=== PATIENT | female | born 1940 | race Caucasian/White ===

== ENCOUNTER → 2019-05-14 08:47 | Outpatient (BNVA) | payer OTHER, SELFPAY | PROVIDERS: Family Provider Internal Medicine; PCP Internal Medicine; Visit Provider Otolaryngology | DX: E04.1 Nontoxic single thyroid nodule (principal); J34.2 Deviated nasal septum; J34.3 Hypertrophy of nasal turbinates | CPT/HCPCS: 99214 ==

== ENCOUNTER 2019-05-21 10:25 | Day surgery (SDC) | payer OTHER, SELFPAY ==
[2019-05-18 15:48] VITALS: BMI 47.2
[2019-05-21] VITALS (10 sets, daily range): BP systolic 127–166; BP diastolic 56–80; PULSE 93–100; RESP 16–22; TEMP 36.8–37.3; O2SAT 94–98
[2019-05-21 11:12] LABS: Glucose Point of Care 121 mg/dL (70-110)
--- NOTE | 2019-05-21 11:24 | ANES.PREANES ---
Pre-Anesthetic Assessment Pre-Anesthetic Assessment: Height/Weight: Height 1.63 m Weight 124.738 kg Preop Diagnosis: Thyroid mass Proposed Procedure: Operation Date: 05/21/19 12:15 Proposed Procedures p Hemithyroidectomy(Right) - Semaj Monsivais MD Familial anesthetic complications: PONV, hard to wake up Was Beta Inez taken within 24 hours: Yes Last intake: yesterday at 9 pm Social: Social History: No alcohol and No tobacco Exam: Pre-Anes Outpt Exam: alert, oriented x 3, clear to auscultation bilaterally and regular rate & rhythm Airway: Cervical ROM: WNL MP: 2 Dentition: False Pulmonary: Pulmonary: Sleep apnea and SOB Comments: Patient has CHF, wears O2 with activity (2 L NC) CV/HEM: CV/HEM: CHF and HTN Comments: stent placed approximately, on plavix and asa,last took 9 days ago : : Chronic renal failure Comments: stage III - not on dialysis, kidney functioning is declining and is now getting blood every week Hepatic: Hepatic: None reported Metabolic: Metabolic: DM, Morbid obesity and Thyroid (mass) Musc/skel: Musc/skel: Fibromyalgia Neuropsych: Neuropsych: Neuropathy Anesthetic Plan: ASA status: IV Anesthesia: General Risk of > 500 ml blood loss (7ml/kg in children): No PFSH Anesthesia PFSH: Social History Smoking and tobacco status: never smoked Alcohol intake: current Alcohol use comment: occasional Substance/Drug Use: never Data Anesthesia Other Labs: Laboratory Results - last 48 hr 05/21/19 11:08 POC Glucose 121 Cardiac Studies: No Data to Display
[2019-05-21] MEDS: sodium chloride 0.9% 1,000 ML 30 ML IV (12:00)
--- NOTE | 2019-05-21 13:45 | PM.HPUD ---
H&P update H&P Update: DATE OF SURGERY/PROCEDURE: 05/21/19 DATE H&P PERFORMED: 05/14/19 H&P UPDATE INFORMATION: H&P completed within last 30 days and No changes to prior documentation PLANNED PROCEDURE: Operation Date: 05/21/19 12:15 Proposed Procedures p Hemithyroidectomy(Right) - Semaj Monsivais MD Full H&P Perinent History: Family History: Family History (Updated 05/11/19 @ 10:55 by Lisseth Rendon LPN) Mother CAD (coronary artery disease) Other Diabetes Myocardial infarction Social History: Social History Smoking and tobacco status: never smoked Alcohol intake: current Alcohol use comment: occasional Substance/Drug Use: never
--- NOTE | 2019-05-21 13:46 | PM.OP ---
Operative Report Date of procedure: 05/21/19 Pre-op Diagnosis: Thyroid mass Post-op diagnosis: same Post-op Findings: Enlarged right lobe of thyroid Procedure Done: Right thyroid lobectomy Specimens removed/disposition: Right thyroid lobectomy Pathology: Right thyroid lobectomy Surgeon: Semaj Monsivais Anesthesia: General Estimated blood loss (mL): 5 Complications: None Condition: stable Disposition: PACU Brief History: Mrs. Martinez is a 78-year-old female with a right thyroid mass that was highly suspicious on ultrasound. I discussed goals risks and alternatives with her she like to proceed with lobectomy. Informed consent was obtained. Procedure: The patient was prepped draped and injected. A 1.5 cm incision was made in a relaxed skin tension line at the level of the isthmus. Dissection was carried down through the anterior layer of deep cervical fascia. The right lobe of the thyroid was identified the strap musculature was retracted laterally the superior thyroid artery inferior thyroid artery and middle thyroid vein were ligated with harmonic scalpel. The recurrent laryngeal nerve was identified and the gland was reflected into the wound. The isthmus was ligated. The specimen was sent for permanent section analysis. Hemostasis was obtained. Davion was placed in the wound bed. No complications occurred. The incision was closed in layer interrupted fashion with 4-0 Vicryl and five 5-0 Vicryl. Patient was taken to the recovery room during the recovery time postoperative care instructions and counseling including detailed written and verbal instruction given to the patient and the patient's granddaughter. Once both parties verbalized understanding of all instructions and once the patient met discharge criteria she was discharged in satisfactory and stable condition.
[2019-05-21] MEDS: neomycin-poly-bacitracin oint 28 gm 1 APPLIC TOPICAL (14:24)
[2019-05-21 15:09] LABS: Anion Gap 15.7 (5-19); Blood Urea Nitrogen 36 mg/dL (8-23); Calcium 9.5 mg/dL (8.5-10.5); Carbon Dioxide 30 mmol/L (22-29); Chloride 100 mmol/L (98-107); Glucose 177 mg/dL (74-106); Osmolality Calculated 294 mOsm/kg (285-295); Potassium 4.7 mmol/L (3.5-5.1); Sodium 141 mmol/L (136-145)
[2019-05-21] MEDS: fentaNYL 50 mcg/mL INJ 2mL IVP (17:00)
--- NOTE | 2019-05-21 17:35 | SUR.PHASEI ---
1720 PT TO OPS AWAKE ALERT TALKATIVE WITH FAMILY IN ROOM ,SATS 98% ON3LNC NO DISTRESS NECK DRESSING D/I PT TAKING SIPS OF SODA, GLUCOSE CHECK DONE AT BEDSIDE IN OPS
[2019-05-21 17:38] LABS: Glucose Point of Care 179 mg/dL (70-110)
== END 2019-05-21 18:07 | disposition home or self-care (01) ==
PROVIDERS: Anesthesiology; Family Provider Internal Medicine; PCP Internal Medicine; Visit Provider Otolaryngology
PROC: (CPT 60210; principal; 2019-05-21 12:15)
DX: E04.1 Nontoxic single thyroid nodule (principal); Z82.49 Family history of ischemic heart disease and other diseases of the circulatory system; G47.30 Sleep apnea, unspecified; Z99.81 Dependence on supplemental oxygen; E11.22 Type 2 diabetes mellitus with diabetic chronic kidney disease; I13.0 Hypertensive heart and chronic kidney disease with heart failure and stage 1 through stage 4 chronic kidney disease, or unspecified chronic kidney disease; N18.3 Chronic kidney disease, stage 3 (moderate); E66.01 Morbid (severe) obesity due to excess calories; Z68.42 Body mass index [BMI] 45.0-49.9, adult; M79.7 Fibromyalgia; E11.40 Type 2 diabetes mellitus with diabetic neuropathy, unspecified
CPT/HCPCS: 60210; 12345; 36415; 36416; 80048; 82962; 88307; 96365; J2001; J2405; J2704; J2710; J3010; J3490; J7030

== ENCOUNTER → 2019-05-22 10:27 | Outpatient (BNVA) | payer OTHER, SELFPAY | PROVIDERS: Family Provider Internal Medicine; PCP Internal Medicine; Visit Provider Otolaryngology | DX: J34.3 Hypertrophy of nasal turbinates (principal); J34.2 Deviated nasal septum; E07.9 Disorder of thyroid, unspecified; R09.82 Postnasal drip | CPT/HCPCS: 99024; 99214 ==

== ENCOUNTER → 2019-05-24 13:34 | Outpatient (BNVA) | payer OTHER, SELFPAY | PROVIDERS: Family Provider Internal Medicine; PCP Internal Medicine; Visit Provider Otolaryngology | DX: E04.1 Nontoxic single thyroid nodule (principal); J01.90 Acute sinusitis, unspecified; R09.82 Postnasal drip; E07.9 Disorder of thyroid, unspecified; J34.3 Hypertrophy of nasal turbinates; J34.2 Deviated nasal septum; Z88.3 Allergy status to other anti-infective agents | CPT/HCPCS: 99024; 99214 ==

== ENCOUNTER → 2019-06-11 09:06 | Outpatient (BNVA) | payer OTHER, SELFPAY | PROVIDERS: Family Provider Internal Medicine; PCP Internal Medicine; Visit Provider Otolaryngology | DX: J01.90 Acute sinusitis, unspecified (principal); R09.82 Postnasal drip; J34.3 Hypertrophy of nasal turbinates; J34.2 Deviated nasal septum; Z88.3 Allergy status to other anti-infective agents | CPT/HCPCS: 99213; 99214 ==

== ENCOUNTER 2019-08-20 10:42 | Emergency (ER) | payer OTHER, SELFPAY ==
[2019-08-20 10:48] VITALS: BMI 46.7
[2019-08-20 10:50] VITALS: BP 148/63; PULSE 67; RESP 20; TEMP 36.6; O2SAT 96
--- NOTE | 2019-08-20 10:53 | ED_ITS ---
HPI - Fall General: Chief Complaint: Fall Stated Complaint: FALL NIGHT BEFORE Time Seen by Provider: 08/20/19 10:49 History of Present Illness: HPI Narrative: Patient is a 78-year-old female comes to the ED after having a fall. Fall occurred last night. She is complaining of having left knee pain, left-sided upper back pain and tailbone pain. She currently rates the pain at about a 4 to a 5 out of 10. She takes Tylenol to help with pain and states that she does not want any pain meds while here in the ED. She denies any loss of consciousness, headache, scalp tenderness or neurological symptoms after fall. Associated symptoms-after fall: Denies abdominal pain, chest pain, headache(s), hematuria or neck pain Review of Systems Const: Denies: fever, chills or fatigue Eyes: Denies: change in vision or eye discomfort ENMT: Denies: throat pain, painful swallowing, nasal discharge or nasal congestion Card: Denies: chest pain, palpitations, edema, swelling of feet/ankles, shortness of breath on exertion or shortness of breath when lying down Resp: Denies: shortness of breath, productive cough or non-productive cough GI: Denies: abdominal pain, nausea, vomiting, diarrhea, constipation or blood in stool : Denies: flank pain, painful urination or blood in urine Musc: Reports: back pain (tailbone and upper back left side) and extremity pain (left knee); Denies: neck pain or extremity swelling Skin/Breast: Denies: rash or new lesion Neuro: Denies: headache, numbness in extremities or weakness in extremities PFS ED PFSH: Medical History Acute sinusitis Allergy to Betadine Family History Mother CAD (coronary artery disease) Other Diabetes Myocardial infarction Social History Smoking and tobacco status: never smoked Alcohol intake: current Physical Exam Const: COMMON NORMALS: oriented x3 HENMT: COMMON NORMALS: normocephalic HEAD & SCALP: normocephalic MOUTH: oral and palatal mucosa normal THROAT: posterior oropharynx normal and uvula midline Neck/C-Spine: COMMON NORMALS: supple GENERAL: Yes normal visual inspection Resp: COMMON NORMALS: normal respiratory effort, no retractions, no use of accessory muscles and clear to auscultation bilaterally AUSCULTATION: clear to auscultation bilaterally Cardio: COMMON NORMALS: regular rate, regular rhythm, S1 normal heart sound, S2 normal heart sound, no gallops, no clicks, no murmurs and peripheral pulses 2+ throughout RATE: regular rate RHYTHM: regular rhythm HEART SOUNDS: S1 normal and S2 normal PERIPHERAL PULSES: pulses 2+ throughout GI: COMMON NORMALS: normal to inspection, nondistended, normoactive bowel sounds, soft to palpation, non-tender and no masses PALPATION: Yes soft : COMMON NORMALS: Yes no CVA tenderness BLADDER/KIDNEY EXAM: Yes no CVA tenderness Back/Pelvis: COMMON NORMALS: no CVA tenderness THORACIC SPINE/UPPER BACK: Yes paraspinal muscle tenderness and Yes other soft tissue findings Other thoracic soft tissue findings laterality: left Left other thoracic soft tissue findings details: ecchymosis and tenderness COCCYX: tenderness Extremity: LEFT LOWER EXTREMITY: Yes knee joint Left knee: Yes inspection (normal), Yes palpation (mild tenderness on medial and lateral side of knee), Yes ROM (limited due to pain) and Yes neurovascular exam (intact) Neuro: COMMON NORMALS: oriented x3, CN's II-XII intact bilaterally, moves all extremities, no focal motor deficits and no sensory deficits noted COORDINATION/BALANCE: [id number]-os-mozg test normal MOTOR EXAM: strength 5/5 throughout COORDINATION: [id number]-ic-egpd test normal Skin: COMMON NORMALS: no rashes or lesions noted GENERAL SKIN EXAM: no rashes or lesions noted and dry skin Course Vital Signs: Vital signs: Vital Signs Temperature 97.8 F 08/20/19 10:50 Pulse Rate 71 08/20/19 12:31 Respiratory Rate 16 08/20/19 12:31 Blood Pressure 112/38 08/20/19 12:31 Pulse Oximetry 93 08/20/19 12:31 MDM - Fall MDM Narrative: Medical decision making narrative: Patient is a 78-year-old female who comes to the ED with left knee, upper back and tailbone pain. Physical exam showed a contusion with some bruising on the left upper back region. There is also soft tissue tenderness in the left upper back near the contusion. Lateral and medial tenderness over the knee. Tailbone tenderness. X-ray of sacrum and coccyx showed no acute fractures. X-ray of the knee showed osteoarthritis but no acute fractures. Patient was discharged and told to follow-up with PCP in 7 days for reevaluation. Apply ice and take Tylenol for pain. Patient understood and agreed with plan. Imaging Data^: Xray Ortho: Attestation: I personally reviewed and interpreted this imaging study as follows: Radiologist's impression: [address] [place] [address] XRay Report Signed Patient: Jing Martinez Unit #: [id number] : 1940 Age/Sex: 78 / F ADM Date: 08/20/19 Loc: ER Room/Bed: Attending Dr: Ordering Provider/Ordering MD: Juajno Comer Date of Service: 08/20/19 Procedure(s): XR sacrum coccyx min 2V 44007 Accession Number(s): [id number] Report Number: [id number] WS: [id number] SACRUM AND COCCYX TECHNIQUE: AP angled and lateral views. HISTORY: fall with pain in tailbone COMPARISON: None available. Bones are osteopenic. Mild narrowing of the SI joints. Moderate narrowing of the L5-S1 disc level. No fracture or displacement identified. XR/XR sacrum coccyx min 2V 51201 IMPRESSION: No sacral or coccygeal fracture identified radiographically. Dictated By: Keyla Emerson DO Signed By: Keyla Emerson DO Signed Date/Time: 08/20/19 1153 DD/ 1152 Other Xray: Attestation: I personally reviewed and interpreted this imaging study as follows: Radiologist's impression: [address] [place] [address] XRay Report Signed Patient: Jing Martinez Unit #: [id number] : 1940 Age/Sex: 78 / F ADM Date: 08/20/19 Loc: ER Room/Bed: Attending Dr: Ordering Provider/Ordering MD: Juanjo Comer Date of Service: 08/20/19 Procedure(s): XR knee LT 3V* 81334 Accession Number(s): [id number] Report Number: [id number] WS: [id number] LEFT KNEE: 3 VIEW(S) TECHNIQUE: AP, oblique and lateral. HISTORY: fall with left knee pain COMPARISON: None available. Osteopenia. Moderate to severe degenerative changes involving all 3 comp artments. No fracture is identified. No joint effusion. Vascular calcifications. XR/XR knee LT 3V* [id number] IMPRESSION: Tricompartment moderate osteoarthritis. No definite fractures are identified. Dictated By: Keyla Emerson DO Signed By: Keyla Emerson DO Signed Date/Time: 08/20/19 115 DD/ 1150 Discharge Plan Discharge Patient Disposition: Home, Self-Care Clinical Impression: Contusion Qualifiers: Encounter type: initial encounter Contusion area: shoulder Laterality: left Qualified Code(s): S40.012A - Contusion of left shoulder, initial encounter Osteoarthritis Qualifiers: Osteoarthritis location: knee Osteoarthritis type: primary Laterality: left Qualified Code(s): M17.12 - Unilateral primary osteoarthritis, left knee Condition: Stable Prescriptions: No Action clopidogrel 75 mg tablet 75 mg PO QDAY RF: 0 Novolin N NPH U-100 Insulin 100 unit/mL suspension 20 unit SUBCUT .sliding scale RF: 0 atorvastatin 80 mg tablet 80 mg PO .at bedtime RF: 0 metoprolol succinate 50 mg tablet extended release 24 hr 25 mg PO BID RF: 0 losartan 50 mg tablet 75 mg PO QDAY RF: 0 aspirin [Adult Aspirin Regimen] 81 mg tablet,delayed release (DR/EC) 81 mg PO QDAY RF: 0 torsemide 20 mg tablet 20 mg PO .4 daily RF: 0 isosorbide mononitrate 30 mg Tablet Extended Release 24 Hr 30 mg PO DAILY RF: 0 gabapentin 300 mg Capsule 300 mg PO BID RF: 0 diphenhydramine HCl [Benadryl] 25 mg Capsule 25 mg PO Q6H PRN (Reason: Itching) RF: 0 Discharge Orders: Discharge Order (Routine); Ordered 08/20/19 Ordered By: Juanjo Comer Referrals: Cj Croft [Primary Care Provider] - Discharge Diet: Regular Discharge Activity: Increase activity as tolerated Patient Instructions: Osteoarthritis (ED), Contusion in Adults (ED) Activity Restrictions/Additional Instructions: Follow-up with your PCP in 7 days for reevaluation. Take Tylenol for pain relief. Apply ice or cold pack on sore areas to help with symptoms. Continue taking all previously prescribed home medications. Discharge Date/Time: 08/20/19 12:33 Coding Level of Care Code ED Fire Protection Engineering Technician for Luly Fwneela Exam Comprehensive
--- NOTE | 2019-08-20 11:09 | XR_ITS ---
WS: [id number] LEFT KNEE: 3 VIEW(S) TECHNIQUE: AP, oblique and lateral. HISTORY: fall with left knee pain COMPARISON: None available. Osteopenia. Moderate to severe degenerative changes involving all 3 compartments. No fracture is iden tified. No joint effusion. Vascular calcifications. XR/XR knee LT 3V* [id number] IMPRESSION: Tricompartment moderate osteoarthritis. No definite fractures are identified.
--- NOTE | 2019-08-20 11:09 | XR_ITS ---
WS: [id number] SACRUM AND COCCYX TECHNIQUE: AP angled and lateral views. HISTORY: fall with pain in tailbone COMPARISON: None available. Bones are osteopenic. Mild narrowing of the SI joints. Moderate narrowing of the L5-S1 disc level. No fracture or displacement identified. XR/XR sacrum coccyx min 2V 48011 IMPRESSION: No sacral or coccygeal fracture identified radiographically.
[2019-08-20 11:42] VITALS: BP 112/38; PULSE 71; RESP 16; O2SAT 93
[2019-08-20 12:31] VITALS: BP 112/38; PULSE 71; RESP 16; O2SAT 93
== END 2019-08-20 12:33 | disposition home or self-care (01) ==
PROVIDERS: Emergency Provider Physician Assistant; Family Provider Internal Medicine; PCP Internal Medicine
DX: M17.12 Unilateral primary osteoarthritis, left knee (principal); S40.012A Contusion of left shoulder, initial encounter; Z79.02 Long term (current) use of antithrombotics/antiplatelets; Z79.4 Long term (current) use of insulin; Z79.82 Long term (current) use of aspirin; W19.XXXA Unspecified fall, initial encounter
CPT/HCPCS: 12345; 72220; 73562; 99282

== ENCOUNTER 2019-10-30 06:03 | Inpatient (IN) | payer OTHER, MEDICARE, SELFPAY ==
[2019-10-30] VITALS (17 sets, daily range): BP systolic 126–192; BP diastolic 50–103; PULSE 72–166; RESP 16–22; TEMP 36.4–37.2; O2SAT 91–100; BMI 45.9
--- NOTE | 2019-10-30 06:21 | ECG_ITS ---
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 Measurements Intervals Herminie Rate: 83 P: 61 MN: 199 QRS: -23 QRSD: 80 T: 70 QT: 364 QTc: 428 Interpretive Statements SINUS RHYTHM LOW QRS VOLTAGE IN PRECORDIAL LEADS [QRS DEFLECTION < 1.0 mV IN CHEST LEADS] ANTEROSEPTAL MYOCARDIAL INFARCTION , OF INDETERMINATE AGE [40+ ms Q WAVE IN V1-V4] Compared to ECG 08/17/2018 13:31:53 First degree AV block no longer present Left-axis deviation no longer present Myocardial infarct finding still present Electronically Signed On 10-30-2019 16:54:49 CDT by Rohan Pagan M.D. [id number]
--- NOTE | 2019-10-30 06:21 | XR_ITS ---
WS: [id number] PORTABLE CHEST HISTORY: chest pain COMPARISON: 08/17/2018 Moderate elevation of the RIGHT hemidiaphragm. Normal vasculature. No pneumonia. No pleural effusion or pneumothorax. Cardiac size: Mildly enlarged cardiac silhouette. Mediastinum/Aorta: Mild atherosclerosis aorta. 4 anchors are present in the RIGHT humeral head. XR/XR chest 1V portable [id number] IMPRESSION: Stable elevation RIGHT hemidiaphragm with mild cardiomegaly.
[2019-10-30] MEDS: ondansetron 2 mg/ML SDV 2 mL 4 MG IVP (07:08)
[2019-10-30] MEDS: morphine 4 mg/mL SDV 1 mL 2 MG IVP (07:09)
--- NOTE | 2019-10-30 07:40 | ED_ITS ---
HPI - Chest Pain General: Chief Complaint: Chest Pain Stated Complaint: CP Time Seen by Provider: 10/30/19 06:21 History of Present Illness: HPI narrative: 79-year-old female presents via area back with complaint of chest pain. She has right-sided chest pain i nitially woke her up this morning at 4 AM. She called EMS and her daughter who is a DIVISIONAL HUMAN RESOURCES DIRECTOR she has oxygen at home which she will wear it initially they put her on oxygen when EMS got there they gave her aspirin and one single sublingual nitro chest pain resolved but she still has right arm and leg pain she denies any focal neurologic deficit no difficulty speech swallowing or vision. When I seen her she was having 0 chest pain. She was a little short of breath and diaphoretic when it first started at home as well as nauseous and dizzy. That has all resolved as well. MD complaint: chest pain Pertinent past history: coronary artery disease and prior [place] Onset (ago): hour(s) Timing of current episode: episodic Prior episodes: Yes Onset: during rest Pain location: substernal and right chest Pain radiation: right arm and other (Right leg) Severity: moderate Quality: heaviness Relieving factors: other (Sublingual nitro and aspirin) Exacerbating factors: nothing Associated symptoms: Reports dyspnea, leg edema and nausea; Deny fever(s) Treatment prior to arrival: aspirin and nitroglycerin Review of Systems Const: Denies: fever(s), chills, body aches, change in appetite, fatigue or malaise ENMT: Denies: throat pain, ear or mastoid pain, nasal discharge or nasal congestion Card: Reports: chest pain, edema and dyspnea on exertion; Denies: orthopnea Resp: Reports: dyspnea; Denies: productive cough or non-productive cough GI: Reports: nausea : Denies: flank pain, difficulty voiding, dysuria, urinary frequency or urinary urgency Skin/Breast: Denies: rash or pruritus PFSH ED PFSH: Medical History (Updated 10/31/19 @ 06:08 by Stephen Jane DO) Allergy to Betadine Benign essential HTN CAD (coronary artery disease) Carotid stenosis Chronic diastolic congestive heart failure Chronic kidney disease DM2 (diabetes mellitus, type 2) Goiter Hyperlipidemia Hypertrophy of inferior nasal turbinate Nasal septal deformity Obesity Postherpetic polyneuropathy Postnasal drip Surgical History H/O partial thyroidectomy H/O: hysterectomy History of back surgery Hx of cholecystectomy Status post cardiac catheterization Family History Mother CAD (coronary artery disease) Other Diabetes Myocardial infarction Social History (Updated 10/30/19 @ 11:23 by Cheyanne Osman DO) Smoking and tobacco status: never smoked Alcohol intake: former Substance/Drug Use: never Physical Exam Const: COMMON NORMALS: no acute distress GENERAL APPEARANCE: cooperative and comfortable ORIENTATION/CONSCIOUSNESS: Yes awake, Yes oriented to person, Yes oriented to place and Yes oriented to time HENMT: COMMON NORMALS: normocephalic, atraumatic, hearing grossly normal bilaterally, external ears normal, EAC's normal, TM's normal bilaterally, Normal nasal mucous membranes and turbinates present, moist oral mucous membranes and oropharynx normal HEAD & SCALP: normocephalic and atraumatic NOSE: Normal nasal mucous membranes and turbinates present EXTERNAL EAR: Yes external ears normal EXTERNAL AUDITORY CANAL: EAC's normal TYMPANIC MEMBRANE: TM's normal bilaterally Eye: COMMON NORMALS: Equal, round and reactive pupils present, EOMs intact bilaterally, conjunctivae normal and no scleral icterus CONJUNCTIVA: Yes conjunctivae normal PUPIL: Yes Equal, round and reactive pupils present Neck/C-Spine: COMMON NORMALS: full ROM, no lymphadenopathy, supple and no JVD Lymph: LYMPHATIC: no lymphadenopathy noted and no lymphedema noted Resp: COMMON NORMALS: normal respiratory effort, No retractions, No use of accessory muscles and clear to auscultation bilaterally AUSCULTATION: clear to auscultation bilaterally Cardio: COMMON NORMALS: no JVD, regular rate, regular rhythm and No murmurs present (Cardio) RATE: regular rate RHYTHM: regular rhythm GI: COMMON NORMALS: Soft to palpation and No hepatosplenomegaly present AUSCULTATION: Yes normoactive bowel sounds PALPATION: Yes Soft to palpation, No Tenderness to palpation present (GI), No Guarding due to palpation present (GI) and Yes No hepatosplenomegaly present Extremity: COMMON NORMALS: normal to inspection, capillary refill normal, no clubbing, cyanosis or edema, no calf tenderness and no pedal edema Neuro: SENSORIUM/ORIENTATION: Yes oriented to person, Yes oriented to place and Yes oriented to time Skin: COMMON NORMALS: no rashes or lesions noted GENERAL SKIN EXAM: no rashes or lesions noted Course Vital Signs: Vital signs: Vital Signs Temperature 98.1 F 10/31/19 04:00 Pulse Rate 79 10/31/19 04:00 Respiratory Rate 19 H 10/31/19 04:00 Blood Pressure 167/65 10/31/19 04:00 Pulse Oximetry 99 10/31/19 04:00 MDM - Chest Pain MDM Narrative: Medical decision making narrative: Patient has a history of coronary disease last year she had a normal sestamibi stress test shortly after that went on to have her LAD stented. I am concerned about the fact that the patient had onset of chest pain while at rest and relieved completely by single nitro. She is not had any further symptoms Given her heart score she needs to be ruled out as an inpatient, she may need cardiology consultation given her complicated history. Discussed Dr. Osman orders have been written. Lab Data: Labs: Lab Results 10/30/19 10/30/19 10/30/19 Range/Units 09:00 09:00 09:00 WBC 10.0 (4.0-10.0) 10^3/ uL RBC 3.65 L (4.1-5.3) 10^6/u L Hgb 10.7 L (11.5-15.3) g/dL Hct 34.7 L (37.0-47.0) % MCV 95.1 (81-99) fL MCH 29.3 (28.0-34.0) pg MCHC 30.8 (30.0-36.0) g/dL RDW 13.2 (12.1-15.1) % Plt Count 284 (130-400) 10^3/c mm MPV 9.5 (7.4-10.4) fL Neut % (Auto) 77.6 % Lymph % (Auto) 14.5 % Perkins % (Auto) 5.8 % Eos % (Auto) 1.3 % Baso % (Auto) 0.4 % Neut # (Auto) 7.8 H (1.8-7.7) 10^3/u L Lymph # (Auto) 1.5 (0.8-4.8) 10^3/u L Perkins # (Auto) 0.6 (0.2-0.9) 10^3/u L Eos # (Auto) 0.1 (0.0-0.8) 10^3/u L Baso # (Auto) 0.0 (0.0-0.1) 10^3/u L Nucleated RBC % (a uto) 0 % Nucleated RBCs # 0.0 /100WBC D-Dimer (0-0.59) ug/mIFE U Sodium 136 (136-145) mmol/L Potassium 5.0 (3.5-5.1) mmol/L Chloride 99 (98-107) mmol/L Carbon Dioxide 28 (22-29) mmol/L Anion Gap 14.0 (5-19) BUN 33 H (8-23) mg/dL Creatinine 1.7 H (0.5-0.9) mg/dL Glucose 188 H (65-115) mg/dL Calculated Osmolal ity 284 L (285-295) mOsm/k g Calcium 8.7 (8.5-10.5) mg/dL Total Bilirubin 0.3 (0.15-1.2) mg/dL AST 15 (0-32) U/L ALT 12 (0-33) U/L Alkaline Phosphata se 98 (35-105) IU/L Troponin T Baselin e 24 H (0-10) ng/L NT-Pro-B Natriuret Pep (0-450) pg/mL Total Protein 6.4 L (6.6-8.7) g/dL Albumin 3.7 (3.5-5.2) g/dL Globulin 2.7 (1.3-4.6) g/dL TSH (0.27-4.20) uIU/ mL Free T4 (0.82-1.77) ng/d L 10/30/19 10/30/19 10/30/19 Range/Units 09:00 09:00 09:00 WBC (4.0-10.0) 10^3/ uL RBC (4.1-5.3) 10^6/u L Hgb (11.5-15.3) g/dL Hct (37.0-47.0) % MCV (81-99) fL MCH (28.0-34.0) pg MCHC (30.0-36.0) g/dL RDW (12.1-15.1) % Plt Count (130-400) 10^3/c mm MPV (7.4-10.4) fL Neut % (Auto) % Lymph % (Auto) % Perkins % (Auto) % Eos % (Auto) % Baso % (Auto) % Neut # (Auto) (1.8-7.7) 10^3/u L Lymph # (Auto) (0.8-4.8) 10^3/u L Perkins # (Auto) (0.2-0.9) 10^3/u L Eos # (Auto) (0.0-0.8) 10^3/u L Baso # (Auto) (0.0-0.1) 10^3/u L Nucleated RBC % (a uto) % Nucleated RBCs # /100WBC D-Dimer 1.72 H (0-0.59) ug/mIFE U Sodium (136-145) mmol/L Potassium (3.5-5.1) mmol/L Chloride (98-107) mmol/L Carbon Dioxide (22-29) mmol/L Anion Gap (5-19) BUN (8-23) mg/dL Creatinine (0.5-0.9) mg/dL Glucose (65-115) mg/dL Calculated Osmolal ity (285-295) mOsm/k g Calcium (8.5-10.5) mg/dL Total Bilirubin (0.15-1.2) mg/dL AST (0-32) U/L ALT (0-33) U/L Alkaline Phosphata se (35-105) IU/L Troponin T Baselin e (0-10) ng/L NT-Pro-B Natriuret Pep 1551 H (0-450) pg/mL Total Protein (6.6-8.7) g/dL Albumin (3.5-5.2) g/dL Globulin (1.3-4.6) g/dL TSH 7.83 H (0.27-4.20) uIU/ mL Free T4 1.06 (0.82-1.77) ng/d L Discharge Plan Discharge Patient Disposition: Placed in Observation Admit Provider: Cheyanne Osman Clinical Impression: Chest pain, Chronic kidney disease, Carotid stenosis, CAD (coronary artery disease), Benign essential HTN, Hyperlipidemia, DM2 (diabetes mellitus, type 2), Chronic diastolic congestive heart failure Condition: Stable Interventions: ED Discharge Assessment Last Done: 10/30/19 14:26 ED Charges Last Done: 10/30/19 14:26 Discharge Date/Time: 10/30/19 14:31 Coding Level of Care Code ED Sausage Grinder for Normang Fwd Exam Comprehensive
[2019-10-30] MEDS: metoclopramide 5 mg/mL SDV 2 mL 10 MG IVP (08:09)
--- NOTE | 2019-10-30 08:21 | ECG_ITS ---
[facility] Test Date: 2019-10-30 Pat Name: Jing Martinez Department: Room: Gender: Female Disc Sander: : 1940 Requested By: Stephen Dejesus Order Number: [id number] Brandon MD: Rohan Pagan M.D. Measurements Intervals [place] Rate: 79 P: 76 WI: 265 QRS: -21 QRSD: 86 T: 48 QT: 374 QTc: 431 Interpretive Statements SINUS RHYTHM WITH FIRST DEGREE AV BLOCK LOW QRS VOLTAGE IN PRECORDIAL LEADS [QRS DEFLECTION < 1.0 mV IN CHEST LEADS] POSSIBLE RIGHT VENTRICULAR CONDUCTION DELAY [RSR (QR) IN V1/V2] ANTEROSEPTAL MYOCARDIAL INFARCTION , PROBABLY OLD [40+ ms Q WAVE IN V1-V4] Compared to ECG 10/30/2019 06:26:57 First degree AV block now present Myocardial infarct finding still present Electronically Signed On 10-30-2019 16:57:30 CDT by Rohan Pagan M.D. [id number]
--- NOTE | 2019-10-30 09:02 | CT_ITS ---
WS: [id number] CT HEAD NONCONTRAST HISTORY: r side symptoms, headache and dizziness. TECHNIQUE: Contiguous axial imaging performed through the brain in 2.5 mm imaging. Bone and soft tiss ue windows. Sagittal and coronal reformats reviewed. All CT scans at [facility] use at le ast one of these dose optimization techniques: automated exposure control; mA and/or kV adjustment pe r patient size (includes targeted exams where dose is matched to clinical indication); or iterative r econstruction. DLP: 737.71 mGy.cm COMPARISON: None available. No acute intracranial hemorrhage, midline shift or mass effect. Mild atrophy and mild chronic microvascular ischemic disease. Small lacunar infarcts in the external capsules bilaterally. Ventricles: Normal size with no hydrocephalus. No inferior displacement of cerebellar tonsils. Paranasal sinuses: As visualized are clear. Mastoid air cells: Well pneumatized. Calvarium and scalp: Skull is intact with no soft tissue edema or swelling. Extensive calcification internal carotid arteries through the cavernous sinuses. CT/CT head wo con* [id number] IMPRESSION: 1. No acute intracranial hemorrhage or edema. 2. Mild atrophy and mild chronic microvascular ischemic disease.
[2019-10-30 09:12] LABS: Basophils % 0.4 %; Eosinophils # 0.1 10^3/uL (0.0-0.8); Eosinophils % 1.3 %; Hematocrit 34.7 % (37.0-47.0); Hemoglobin 10.7 g/dL (11.5-15.3); Lymphocytes # 1.5 10^3/uL (0.8-4.8); Lymphocytes % 14.5 %; Mean Corpuscular HGB Conc 30.8 g/dL (30.0-36.0); Mean Corpuscular Hemoglobin 29.3 pg (28.0-34.0); Mean Corpuscular Volume 95.1 fL (81-99); Mean Platelet Volume 9.5 fL (7.4-10.4); Monocytes # 0.6 10^3/uL (0.2-0.9); Monocytes % 5.8 %; Neutrophils # 7.8 10^3/uL (1.8-7.7); Neutrophils % 77.6 %; Nucleated Red Blood Cells % 0 %; Platelet Count 284 10^3/cmm (130-400); Red Blood Count 3.65 10^6/uL (4.1-5.3); Red Cell Distribution Width 13.2 % (12.1-15.1)
[2019-10-30 09:31] LABS: Troponin(5th) Baseline 24 ng/L (0-10)
[2019-10-30 09:37] LABS: Alanine Aminotransferase 12 U/L (0-33); Albumin Level 3.7 g/dL (3.5-5.2); Alkaline Phosphatase 98 IU/L (35-105); Aspartate Amino Transferase 15 U/L (0-32); Blood Urea Nitrogen 33 mg/dL (8-23); Calcium 8.7 mg/dL (8.5-10.5); Carbon Dioxide 28 mmol/L (22-29); Chloride 99 mmol/L (98-107); Globulin 2.7 g/dL (1.3-4.6); Glucose 188 mg/dL (65-115); Osmolality Calculated 284 mOsm/kg (285-295); Sodium 136 mmol/L (136-145); Total Bilirubin 0.3 mg/dL (0.15-1.2); Total Protein 6.4 g/dL (6.6-8.7)
[2019-10-30 09:39] LABS: D Dimer 1.72 ug/mIFEU (0-0.59)
--- NOTE | 2019-10-30 09:56 | CT_ITS ---
WS: [id number] CT CHEST ANGIOGRAPHY WITH REFORMATS HISTORY: dyspnea TECHNIQUE: Contiguous axial images are obtained through the chest during arterial injection of intrav enous contrast. Images are reconstructed to evaluate the pulmonary arteries. MIP imaging also reviewe d. All CT scans at [facility] use at least one of these dose optimization techniques: aut omated exposure control; mA and/or kV adjustment per patient size (includes targeted exams where dose is matched to clinical indication); or iterative reconstruction. CONTRAST: Visipaque 320; 95 mL IV. DLP: 971.92 mGy.cm COMPARISON: 07/15/2014 Poor opacification of the pulmonary arteries due to injection rate. Centrally there is no pulmonary e mbolism. Beyond the lobar and segmental branches there is poor arterial opacification. Emboli cannot be excluded. Pulmonary artery size is enlarged. Mild atherosclerosis aorta with no aneurysm. Mild enl argement the cardiac chambers with coronary artery calcifications. No pericardial or pleural effusion s. Mild haziness and interstitial thickening throughout both lungs. Areas of atelectasis are subsegmenta l and linear in the lung bases. No mass. Small mediastinal and hilar lymph nodes. Normal adrenal glands. Visualized upper abdomen is negative for acute process. Heavy calcification in the splenic and renal arteries. Increase in thoracic kyphosis. CT/CT angio chest PE protcl [id number] IMPRESSION: 1. Poor opacification of the pulmonary arteries. Centrally there is no pulmona ry embolism. 2. Subsegmental areas of atelectasis at the lung bases. 3. Mild interstitial edema. 4. No adenopathy. 5. Enlarged pulmonary artery.
[2019-10-30 10:25] LABS: Free T4 Free Thyroxine 1.06 ng/dL (0.82-1.77); Thyroid Stimulating Hormone 7.83 uIU/mL (0.27-4.20)
--- NOTE | 2019-10-30 10:37 | PC.NURSE ---
Made Round in Room, cleaned room,keeping pt and family informed.
[2019-10-30 11:04] LABS: Troponin 5 2HR 22.91 ng/L (0-10)
[2019-10-30] MEDS: iodixanol 320 mg/mL 100mL Btl IV (11:12)
[2019-10-30 11:15] LABS: Troponin 5 2HR Delta -1.09 ABS# (0-10)
--- NOTE | 2019-10-30 11:17 | P.HP_ITS ---
Providers/Chief Complaint Admitting Physician: Cheyanne Osman DO Primary Care Provider: Cj Croft Chief Complaint: CP History of Present Illness Jing Martinez is a 79 year old female with a past medical history of coronary artery disease, chronic kidney disease, congestive heart failure, diabetes, hypertension and obesity that presented to the emergency department today for right-sided chest pain. Family member at bedside reported that suddenly this morning at approximately 4 AM patient began developing right sided paresthesias, dizziness, nausea, right-sided facial droop and felt unsteady. She reported that she was having right-sided chest pain that felt as a heaviness in her chest. Patient was brought into the ER for further evaluation and treatment. Patient denies any recent illness, no fevers or chills, no cough or shortness of breath. Patient is on home oxygen 2 L by nasal cannula on an as- needed basis with exertion. Patient follows closely with cardiology, Dr. Pagan, and reports that she has been told that she needs 2 more stents, however they have been holding off due to her worsening renal function. She is chronic kidney disease and is followed by a trouble locater in [place]. Patient recently had thyroid surgery due to concern for thyroid nodule. Patient's symptoms of dizziness, nausea, paresthesias and facial droop have now resolved. Patient reports that she is also had dyspnea on exertion over the past couple of weeks. Reports that she suddenly woke up and had 7 pound weight gain, reported that her birthday was on Tuesday but denies any increase in fluid or salt. Patient reports that she has been back and forth on some of her diuretics in the past, was previously started on a medication for 4 to 5 days several months ago by her senior payroll specialist due to congestive heart failure exacerbation. Patient was seen and evaluated in the emergency department had work-up for chest pain and TIA and admitted for observation. Review of Systems Const: Denies: fever(s) or chills Eyes: Denies: change in vision ENMT: Denies: nasal congestion Card: Reports: chest pain; Denies: palpitations or edema Resp: Reports: other (Exertional dyspnea); Denies: dyspnea, productive cough or hemoptysis GI: Denies: abdominal pain, nausea, vomiting, diarrhea, constipation, hematochezia or melena : Denies: dysuria or hematuria Musc: Denies: extremity pain or muscle cramps Skin/Breast: Denies: rash or new lesions Neuro: Reports: numbness in extremities and other (Right-sided facial droop that is now resolved, unsteady gait, improved, dizziness that is now improved); Denies: headache(s) Psych: Denies: anxiety or depression Endo: Denies: polyuria or hot flashes Nelson/Lymph: Denies: easy bruising or easy bleeding Medications/Allergies Home Medications Medication Instructions Recorded Confirmed Last Taken Type aspirin 81 mg tablet,delayed 81 mg PO DAILY 05/11/19 10/30/19 10/29/19 History release atorvastatin 80 mg tablet 80 mg PO BEDTIME tab 05/11/19 10/30/19 10/29/19 History clopidogrel 75 mg tablet 75 mg PO DAILY 05/11/19 10/30/19 10/29/19 History losartan 50 mg tablet 75 mg PO DAILY tab 05/11/19 10/30/19 10/29/19 History diphenhydramine HCl [Benadryl] 25 mg PO BID PRN 05/18/19 10/30/19 10/29/19 History gabapentin 300 mg PO BID 05/18/19 10/30/19 10/29/19 History isosorbide mononitrate 30 mg PO DAILY 05/18/19 10/30/19 10/29/19 History torsemide 20 mg tablet 40 mg PO BID tab 05/24/19 10/30/19 10/29/19 History cholecalciferol (vitamin D3) 25 mcg PO DAILY 10/30/19 10/30/19 10/29/19 History [Vitamin D3] chromium picolinate 1,000 mcg PO EVERY OTHER DAY 10/30/19 10/30/19 Unknown History cyanocobalamin (vitamin B-12) 1,000 mcg PO DAILY 10/30/19 10/30/19 10/29/19 History [Vitamin B-12] insulin NPH and regular human See Rx Instructions .ROUTE .COMPLEX 10/30/19 10/30/19 10/29/19 History [Novolin 70/30 U-100 Insulin] 30 units magnesium oxide 400 mg PO EVERY OTHER DAY 10/30/19 10/30/19 10/29/19 History metoprolol tartrate 25 mg PO BID 10/30/19 10/30/19 10/29/19 History potassium chloride See Rx Instructions .ROUTE .COMPLEX 10/30/19 10/30/19 Unknown History Allergies Allergy/AdvReac Type Severity Reaction Status Date / Time codeine Allergy Unknown Verified 10/30/19 07:59 [From [employer] with Codeine] etodolac Allergy Unknown Verified 10/30/19 07:59 ibuprofen Allergy ALGY-Hives Verified 10/30/19 07:59 naproxen [From Anaprox] Allergy Unknown Verified 10/30/19 07:59 simvastatin Allergy Unknown Verified 10/30/19 07:59 Sulfa (Sulfonamide Allergy Unknown Verified 10/30/19 07:59 Antibiotics) PFSH Acute PFSH: Medical History (Updated 10/30/19 @ 11:22 by Cheyanne Osman DO) Allergy to Betadine Benign essential HTN CAD (coronary artery disease) Carotid stenosis Chronic diastolic congestive heart failure Chronic kidney disease DM2 (diabetes mellitus, type 2) Goiter Hyperlipidemia Hypertrophy of inferior nasal turbinate Nasal septal deformity Obesity Postherpetic polyneuropathy Postnasal drip Surgical History H/O partial thyroidectomy H/O: hysterectomy History of back surgery Hx of cholecystectomy Status post cardiac catheterization Family History Mother CAD (coronary artery disease) Other Diabetes Myocardial infarction Social History (Updated 10/30/19 @ 11:23 by Cheyanne Osman DO) Smoking and tobacco status: never smoked Alcohol intake: former Substance/Drug Use: never Vitals/I&O/Wt Last Vital Signs Temp 97.7 F 10/30/19 06:05 Pulse 81 10/30/19 10:18 Resp 18 10/30/19 10:18 BP 141/51 10/30/19 10:18 Pulse Ox 100 10/30/19 10:18 Weight last 48 hrs Weight 125.191 kg Physical Exam Const: COMMON NORMALS: patient oriented x3 and alert GENERAL APPEARANCE: cooperative ORIENTATION/CONSCIOUSNESS: Yes awake, Yes oriented to person, Yes oriented to place and Yes oriented to time HENMT: COMMON NORMALS: normocephalic and atraumatic HEAD & SCALP: normocephalic and atraumatic Eye: COMMON NORMALS: Equal, round and reactive pupils present PUPIL: Yes Equal, round and reactive pupils present Neck/C-Spine: COMMON NORMALS: supple GENERAL: Yes normal visual inspection Resp: COMMON NORMALS: normal respiratory effort and clear to auscultation bilaterally EFFORT & INSPECTION: Yes able to speak in complete sentences A USCULTATION: no rhonchi and no wheezes OTHER: No appreciable wheezing or rhonchi, faint crackles at the bases bilaterally Cardio: COMMON NORMALS: regular rate, regular rhythm and No murmurs present (Cardio) RATE: regular rate RHYTHM: regular rhythm GI: COMMON NORMALS: Soft to palpation and non-tender INSPECTION: No abdominal distension AUSCULTATION: Yes normoactive bowel sounds PALPATION: Yes Soft to palpation Extremity: COMMON NORMALS: no calf tenderness NARRATIVE EXTREMITY EXAM: 1+ pitting edema in the lower extremities bilaterally, negative Homans sign in the lower extremities bilaterally Neuro: COMMON NORMALS: patient oriented x3, CN's II-XII intact bilaterally, moves all extremities and no focal motor deficits SENSORIUM/ORIENTATION: Yes alert, Yes oriented to person, Yes oriented to place and Yes oriented to time SPEECH: speech normal Psych: COMMON NORMALS: mental status grossly normal and cooperative Skin: COMMON NORMALS: no rashes or lesions noted GENERAL SKIN EXAM: no rashes or lesions noted Data : 10/30/19 09:00 10/30/19 09:00 CTA Chest: I personally reviewed and interpreted this imaging study as follows: Radiologist's impression: IMPRESSION: 1. Poor opacification of the pulmonary arteries. Centrally there is no pulmonary embolism. 2. Subsegmental areas of atelectasis at the lung bases. 3. Mild interstitial edema. 4. No adenopathy. 5. Enlarged pulmonary artery. CT Head: I personally reviewed and interpreted this imaging study as follows: Radiologist's impression: IMPRESSION: 1. No acute intracranial hemorrhage or edema. 2. Mild atrophy and mild chronic microvascular ischemic disease. CXR: I personally reviewed and interpreted this imaging study as follows: Radiologist's impression: Moderate elevation of the RIGHT hemidiaphragm. Normal vasculature. No pneumonia. No pleural effusion or pneumothorax. Cardiac size: Mildly enlarged cardiac silhouette. Mediastinum/Aorta: Mild atherosclerosis aorta. 4 anchors are present in the RIGHT humeral head. XR/XR chest 1V portable [id number] IMPRESSION: Stable elevation RIGHT hemidiaphragm with mild cardiomegaly. A&P Assessment and plan (1) TIA (transient ischemic attack): Placed on observation with telemetry CT head as noted above Patient also reports symptoms that may be related to orthostatic changes with her multiple hypertensive medications and diuretics. Will check orthostatic vital signs. Echocardiogram and carotid ultrasound ordered Continue on aspirin, Plavix, statin Serial neurologic checks Status: Acute (2) Chest pain: Right-sided atypical chest pain with a history of coronary artery disease. Patient reports that she has been told that she requires 2 more stents, will discuss with senior payroll specialist further, followed by Dr. Pagan in the outpatient setting Continue on aspirin, statin, Plavix, isosorbide, losartan, metoprolol Further evaluation with ECHO and stress test Status: Acute (3) Chronic diastolic congestive heart failure: Chronic diastolic CHF with mild acute exacerbation Continue on metoprolol, losartan, Imdur, torsemide 40 mg twice daily Give one time dose of metolazone and continue to monitor renal function closely. Strict intake and output as well as daily weights Oxygen per protocol, patient is on 2 L of oxygen by nasal cannula on an as- needed basis at baseline Repeat echocardiogram ordered and pending Status: Acute (4) DM2 (diabetes mellitus, type 2): Placed on sliding scale insulin as needed Status: Acute (5) Hyperlipidemia: Continue atorvastatin 80 mg at bedtime Status: Acute (6) Benign essential HTN: Patient has not had any morning medications, elevated blood pressure in the ED, will continue on isosorbide, losartan, metoprolol and torsemide Status: Acute (7) CAD (coronary artery disease): With a history of stent placement by Dr. Pagan Patient reports being told she requires 2 more stents, will discuss further with cardiology Status: Acute (8) Carotid stenosis: Reported history of carotid stenosis, no prior carotid ultrasound that can be found in the system. Due to TIA we will repeat carotid ultrasound and continue on aspirin, Plavix, statin Status: Acute (9) Chronic kidney disease: Followed by nephrology in [place], unknown physician per family. Family at bedside reports that last labs showed GFR around 20-30 Status: Acute (10) Obesity: Status: Acute Additional A&P Information VTE prophylaxis: Heparin Diet: Cardiac, carbohydrate consistent CODE STATUS: DNR/DNI, discussed with patient and granddaughter in the ED at time of admission Attestations Medical Necessity Statement*: Observation due to mild CHF exacerbation, chest pain, TIA Coding Level of Care Code Acute Retail Product Advisor for Chg Fwd Exam Comprehensive Diagnoses TIA (transient ischemic attack) G45.9 Chest pain R07.9 Chronic diastolic congestive heart failure I50.32 DM2 (diabetes mellitus, type 2) E11.9 Hyperlipidemia E78.5 Benign essential HTN I10 CAD (coronary artery disease) I25.10 Carotid stenosis I65.29 Chronic kidney disease N18.9 Obesity E66.9
[2019-10-30 11:32] LABS: Glucose Point of Care 209 mg/dL (70-110)
--- NOTE | 2019-10-30 12:21 | ECG_ITS ---
[facility] Test Date: 2019-10-30 Pat Name: Jing Martinez Department: Room: Gender: Female Alumni Coordinator: : 1940 Requested By: Stephen Dejesus Order Number: [id number] Reading MD: Rohan Pagan M.D. Measurements Intervals [place] Rate: 90 P: 73 [place]: 249 QRS: -16 QRSD: 83 T: 61 QT: 364 QTc: 446 Interpretive Statements SINUS RHYTHM WITH FIRST DEGREE AV BLOCK LOW QRS VOLTAGE IN PRECORDIAL LEADS [QRS DEFLECTION < 1.0 mV IN CHEST LEADS] ANTEROSEPTAL MYOCARDIAL INFARCTION , OF INDETERMINATE AGE [40+ ms Q WAVE IN V1-V4] Compared to ECG 10/30/2019 08:25:27 No significant changes Electronically Signed On 10-30-2019 16:59:01 CDT by Rohan Pagan M.D. [id number]
[2019-10-30 15:12] LABS: Glucose Point of Care 242 mg/dL (70-110)
[2019-10-30 15:13] LABS: NT Pro B Type Natriuretic Pept 1551 pg/mL (0-450)
[2019-10-30 16:06] LABS: Troponin 5 6HR 27.59 ng/L (0-10); Troponin 5 6HR Delta 3.59 ng/L (0-12)
[2019-10-30] MEDS: clopidogrel 75 mg Tablet PO (16:17)
[2019-10-30] MEDS: metOLazone 5 MG Tablet PO (16:17)
[2019-10-30] MEDS: heparin 5,000 unit/mL INJ 1 mL 5000 UNIT SUBCUT (16:17)
[2019-10-30] MEDS: losartan 50 mg Tablet 75 MG PO (16:17)
[2019-10-30] MEDS: isosorbide mononitrate ER 30 mg Tablet PO (16:20)
--- NOTE | 2019-10-30 16:30 | PC.NURSE ---
contacted Dr severino about patient taking asa today proir to arrival as well as medication pass late do to patient care. no new instructions given at this time.
[2019-10-30] MEDS: metoprolol tartrate 50 mg Tablet 25 MG PO (17:36)
[2019-10-30] MEDS: TORSEmide 20 mg Tablet 40 MG PO (17:36)
[2019-10-30] MEDS: gabapentin 300 mg Capsule PO (17:36)
[2019-10-30] MEDS: diphenhydrAMINE 25 mg Capsule PO (17:44)
--- NOTE | 2019-10-30 17:45 | PC.NURSE ---
Dr severino notified that patient BG is 221 at this time and 8 units of novolog was given at 1623; instructions to hold 1800 dose of insulin recheck at bed time and given bed time sliding scale also oked to give Benadryl per patients request
[2019-10-30 17:49] LABS: Glucose Point of Care 221 mg/dL (70-110)
--- NOTE | 2019-10-30 19:01 | ECG_ITS ---
[facility] Test Date: 2019-10-31 Pat Name: Jing Martinez Department: Room: 112 Gender: Female Hand Sample Maker: : 1940 Requested By: Cheyanne Osman Order Number: [id number] Brandon MD: Vale Shay M.D. Interpretive Statements NAME OF STUDY: LEXISCAN SESTAMIBI STRESS TEST INDICATION: Chest Pain PROCEDURE: At the baseline, the blood pressure was 131/96 mmHg, oxygen saturation 92% with a heart rate of 97 bpm. The electrocardiogram showed sinus rhythm, normal axis. Probable old anterolateral infarct. The Lexiscan was infused over a period of 20 seconds. A total of 0.4 milligrams of Lexiscan was infused. The stress phase was continued for a total of 5 minutes. Heart rate at the end of the stress phase was 99 bpm, oxygen saturation 88% with a blood pressure of 115/47 mmHg. The EKG at the peak infusion revealed no significant ST-T wave changes. Procedure was stopped due to protocol completion. Sestamibi was injected 20 seconds after the Lexiscan infusion. Blood pressure at the end of the recovery phase was 123/44 mmHg, oxygen saturation 92% with a heart rate of 97 beats per minute. CONCLUSION: 1. No significant EKG changes with the LexiScan infusion. 2. No LexiScan induced chest pain or cardiac arrhythmia. 3. Normal blood pressure and heart rate response. 4. Sestamibi/sestamibi perfusion scan pending; see separate report. Electronically Signed On 10-31-2019 17:19:07 CDT by Vale Shay M.D. [email or web address]/store/[id number]
[2019-10-30 20:29] LABS: Glucose Point of Care 265 mg/dL (70-110)
[2019-10-30] MEDS: atorvastatin 40 mg Tablet 80 MG PO (20:33)
--- NOTE | 2019-10-30 20:58 | PC.NURSE ---
Received bedside report from Sabrina Valero RN at 1930. Patient was assisted up to bathroom. Patient requires minimal to moderate assistance with ambulation. Patient becomes slightly SOB with exertion with SpO2 decreasing to low 90s. Patient reports that when she sleeps that her oxygen level drop to the mid 80s . Patient also stated, I am supposed to use oxygen at night but I don't always and when I do I can only use 1 to 1.5 liters because it gives me a headache. Informed patient that her levels will be watched through the night and O2 will be placed when necessary. Patient expressed understanding and is agreeable to this.
[2019-10-31] VITALS (10 sets, daily range): BP systolic 101–167; BP diastolic 44–79; PULSE 62–97; RESP 18–30; TEMP 36.6–36.8; O2SAT 93–99
[2019-10-31] MEDS: heparin 5,000 unit/mL INJ 1 mL 5000 UNIT SUBCUT ×2 (03:25→15:19)
--- NOTE | 2019-10-31 03:28 | PC.NURSE ---
Patient SpO2 decreases to 81% during sleep. Placed her home dose of Oxygen 1L via NC and patient's SpO2 is consistent at 96 to 98%. Instructed patient on her night time home oxygen use and she stated, I thought I was dropping to only 86% at night. I guess I am going to start using it when I sleep. I did not realize I was dropping that low.
[2019-10-31 04:42] LABS: Basophils # 0.1 10^3/uL (0.0-0.1); Basophils % 0.5 %; Eosinophils # 0.2 10^3/uL (0.0-0.8); Eosinophils % 2.1 %; Hematocrit 34.3 % (37.0-47.0); Hemoglobin 10.1 g/dL (11.5-15.3); Lymphocytes # 1.5 10^3/uL (0.8-4.8); Lymphocytes % 15.1 %; Mean Corpuscular HGB Conc 29.4 g/dL (30.0-36.0); Mean Corpuscular Hemoglobin 28.2 pg (28.0-34.0); Mean Corpuscular Volume 95.8 fL (81-99); Mean Platelet Volume 9.8 fL (7.4-10.4); Monocytes # 0.9 10^3/uL (0.2-0.9); Monocytes % 9.1 %; Neutrophils # 7.4 10^3/uL (1.8-7.7); Neutrophils % 72.6 %; Nucleated Red Blood Cells % 0 %; Platelet Count 315 10^3/cmm (130-400); Red Blood Count 3.58 10^6/uL (4.1-5.3); Red Cell Distribution Width 13.2 % (12.1-15.1); White Blood Count 10.2 10^3/uL (4.0-10.0)
[2019-10-31 05:16] LABS: Alanine Aminotransferase 11 U/L (0-33); Albumin Level 3.5 g/dL (3.5-5.2); Alkaline Phosphatase 94 IU/L (35-105); Anion Gap 14.8 (5-19); Aspartate Amino Transferase 14 U/L (0-32); Blood Urea Nitrogen 35 mg/dL (8-23); Calcium 9.1 mg/dL (8.5-10.5); Carbon Dioxide 30 mmol/L (22-29); Chloride 97 mmol/L (98-107); Glucose 197 mg/dL (65-115); Osmolality Calculated 287 mOsm/kg (285-295); Potassium 4.8 mmol/L (3.5-5.1); Sodium 137 mmol/L (136-145); Total Bilirubin 0.4 mg/dL (0.15-1.2); Total Protein 6.5 g/dL (6.6-8.7)
[2019-10-31 06:26] LABS: Glucose Point of Care 214 mg/dL (70-110)
--- NOTE | 2019-10-31 07:00 | USCV_ITS ---
Jing Martinez Age: 79 Gender: F : 1940 Exam Date: 10/31/2019 06:21 Ordering Phys: Cheyanne Osman DO Technologist: Jessy Diaz Exam Location: [facility] Indication: TIA AND CHEST PAIN PAIRED WITH NM SCAN BP: 127 / 64 HR: 82 Rhythm: Sinus Technical Quality: Suboptimal MEASUREMENTS (Male / Female) Normal Values 2D ECHO LV Diastolic Diameter PLAX 4.1 cm 4.2 - 5.9 / 3.9 - 5.3 cm LV Systolic Diameter PLAX 2.0 cm LV Chamber Size 3.3 cm IVS Diastolic Thickness 1.0 cm 0.6 - 1.0 / 0.6 - 0.9 cm IVS Systolic Thickness 1.0 cm LVPW Diastolic Thickness 1.2 cm 0.6 - 1.0 / 0.6 - 0.9 cm LVPW Systolic Thickness 1.5 cm RV Chamber Size 3.2 cm LVOT Diameter 2.0 cm LV Ejection Fraction 2D Teich 83.2 % LV Ejection Fraction MOD 2C 54.1 % LV Ejection Fraction 2C AL 56.8 % LA Diameter 4.1 cm LA Width 3.6 cm LA Height 4.7 cm RA Width 4.7 cm RA Height 3.0 cm Aorta at Sinotubular Diameter 2.3 cm M-MODE LV Diastolic Diameter MM 4.6 cm 4.2 - 5.9 / 3.9 - 5.3 cm LV Systolic Diameter MM 3.6 cm LV Ejection Fraction MM Teich 43.9 % IVS Diastolic Thickness MM 1.4 cm 0.6 - 1.0 / 0.6 - 0.9 cm IVS Systolic Thickness MM 1.7 cm LVPW Diastolic Thickness MM 1.1 cm 0.6 - 1.0 / 0.6 - 0.9 cm LVPW Systolic Thickness MM 1.8 cm RV Diastolic Diameter MM 1.1 cm Aortic Annulus Diameter 3.0 cm LA Ao Ratio MM 1.4 MV E Point Septal Separation 0.6 cm DOPPLER AV Peak Velocity 163.0 cm/s LVOT Peak Velocity 103.0 cm/s AV Area Cont Eq vti 2.0 cm squared AV Area Cont Eq pk 2.0 cm squared MV Area PHT 5.5 cm squared Mitral E to A Ratio 0.9 MV E' Velocity 7.0 cm/s Mitral E to MV E' Ratio 20.4 Mitral E to LV E' Lateral Ratio 23.4 Mitral E to LV E' Septal Ratio 18.0 TR Peak Velocity 185.7 cm/s TR Peak Gradient 13.8 mmHg TR Mean Velocity 135.1 cm/s TR Mean Gradient 8.0 mmHg TR Velocity Time Integral 45.0 cm TV Peak E Velocity 73.0 cm/s Right Atrial Pressure 3.0 mmHg Pulmonary Artery Systolic Pressu 16.8 mmHg PV Peak Velocity 96.0 cm/s RV Acceleration Time 0.1 s RV Ejection Time 0.4 s RV AcT/ET 0.4 FINDINGS Left Ventricle Normal left ventricular size, systolic function and wall thickness, with no regional wall motion abnormalities. Left ventricular ejection fraction is estimated at 55-60 %. Grade I/IV diastolic dysfunction (abnormal relaxation filling pattern), normal to mildly elevated filling pressures. Right Ventricle Normal right ventricular size and systolic function. Normal right ventricular systolic pressure. Right Atrium Mildly increased right atrial size. Left Atrium Mildly increased left atrial size. Mitral Valve Structurally normal mitral valve. Mild mitral annular calcification. Mild mitral valve regurgitation. Aortic Valve Structurally normal trileaflet aortic valve. Mild aortic valve calcification. Aortic valve sclerosis without stenosis or regurgitation. Tricuspid Valve Structurally normal tricuspid valve. Pulmonic Valve Pulmonic valve not well visualized. Pericardium Normal pericardium without effusion. Aorta Normal ascending aorta dimension. CONCLUSIONS Normal left ventricular size, systolic function and wall thickness, with no regional wall motion abnormalities. Left ventricular ejection fraction is estimated at 55-60 %. Grade I/IV diastolic dysfunction (abnormal relaxation filling pattern), normal to mildly elevated filling pressures. Mildly increased right atrial size. Mildly increased left atrial size. Structurally normal mitral valve. Mild mitral annular calcification. Mild mitral valve regurgitation. No change from the previous study of 06/02/2018 Dr. Rohan Pagan MD (Electronically Signed) Final Date: 31 October 2019 17:00 S
--- NOTE | 2019-10-31 07:00 | USCV_ITS ---
Jing Martinez Age: 79 Gender: F : 1940 Exam Date: 10/31/2019 06:42 Ordering Phys: Cheyanne Osman DO Technologist: Jessy Diaz [place] [facility] [place]: TIA CHEST PAIN Risk Factors: Unknown Previous Vascular Surgery: None Right Brachial BP: / Left Brachial BP: / Right Left Velocity (cm/s) Spectral Plaque Velocity (cm/s) Spectral Plaque Syst/Diast Broadening Syst/Diast Broadening 81.60/ 22.50 Prox CCA 85.00 / 13.60 76.00/ 17.80 Mid CCA 82.50 / 19.20 90.00/ 15.00 Hetro Distal CCA 52.70 / 8.10 Hetro 82.50/ 16.90 Prox ICA 126.50/ 26.00 Hetro 82.50/ 25.30 Hetro Mid ICA 106.70/ 19.80 99.40/ 25.30 Distal ICA 124.00/ 34.70 125.70 Hetro ECA 70.10 Hetro 1.31 ICA/CCA 1.53 Antegrade Vertebral Antegrade 50.30/ 11.20 cm/s 67.00/ 16.10 cm/s Tri Subclavian Bi 66.10 134.0 0 FINDINGS Comparison: none available. No significant elevation of systolic or diastolic velocities. Diffuse bilateral scattered calcified plaque and intimal thickening throughout the common carotid arteries and extending through the bifurcation. CONCLUSIONS Bilateral ICA stenosis less than 50%. Mild diffuse atherosclerosis. Dr. Keyla Emerson DO (Electronically Signed) Final Date: 31 October 2019 14:03 S
--- NOTE | 2019-10-31 07:54 | PC.NURSE ---
Notified Dr. Osman that patient did not have an NPO order and was brought a breakfast tray and ate a few bites of eggs before she was stopped. Nuc med okayed patient to continue with stress test. also patient's BG of 214 patient did not receive insulin prior to leaving the floor. Instructions to miss am dose and recheck BG upon patients arrival to unit.
[2019-10-31] MEDS: regadenoson 0.4 Mg/5 ml Syringe IVP (08:19)
--- NOTE | 2019-10-31 08:19 | SUR.PREOP ---
Patient reports no chest pain or discomfort prior to the start of the procedure.
--- NOTE | 2019-10-31 09:43 | PC.CHAP ---
Pastoral Care Encounter/Spiritual Assessment Type of Contact [] Declined retail sales associate visit [] Patient/Family/Request visit [] Outpatient visit [] Follow-up visit [] Physician referral [] Code/Alert [] Routine visit [] Staff referral [] Actively dying [] Patient sleeping [] Family support [] [x] Out of room [] Palliative care [] [] Receiving care in room [] Pre-surgical visit [] Trauma [] Long length of stay [] ICU visit [x] Other: testing Relational/Emotional Strength [] Patient feels connected with others/family/visitors/staff [] Distress [] Loneliness/isolation [] Abandonment Spirituality of Patient [] Person of Marleny [] Attends Restoration of their Marleny [] Believes in Prayer [] Reads Bible or Amish materials [] There are Spiritual issues to be addressed Aquatics Manager Interventions [] Prayer [] Active listening [] Non-anxious presence [] Spiritual/emotional support [] Crisis/trauma care [] Spiritual counseling [] Bereavement support [] Provided bereavement packet [] Provided Bible/devotional materials [] Provided toy/stuffed animal, coloring book to patient or family member [] Provided Communion [] Anointing/[place] [] Salvation [x] Completed spiritual assessment [] Other: Impact on Illness or Injury [] Angry [] Fearful [] Anxious [] Often cries [] Exhaustion [] Unable to work [] Unable to attend roman catholic [] Unable to walk/stand [] Unable to read [] Unable to drive [] Unable to eat/drink [] Unable to sleep [] Unable to be with family [] Patient intubated [] Other: Summary Time spent with patient
[2019-10-31] MEDS: gabapentin 300 mg Capsule PO ×2 (10:05→18:32)
[2019-10-31] MEDS: aspirin 81 mg EC Tablet PO (10:06)
[2019-10-31] MEDS: losartan 50 mg Tablet 75 MG PO (10:06)
[2019-10-31] MEDS: cholecalciferol (vitamin D3) 1,000 unit Tablet 1000 UNIT PO (10:08)
[2019-10-31] MEDS: TORSEmide 20 mg Tablet 40 MG PO ×2 (10:08→18:31)
[2019-10-31] MEDS: cyanocobalamin 1,000 mcg Tablet 1000 MCG PO (10:09)
[2019-10-31] MEDS: metoprolol tartrate 50 mg Tablet 25 MG PO ×2 (10:09→18:31)
[2019-10-31] MEDS: isosorbide mononitrate ER 30 mg Tablet PO (10:09)
[2019-10-31] MEDS: diphenhydrAMINE 25 mg Capsule PO ×2 (10:09→18:32)
[2019-10-31] MEDS: clopidogrel 75 mg Tablet PO (10:09)
[2019-10-31 10:15] LABS: Glucose Point of Care 329 mg/dL (70-110)
--- NOTE | 2019-10-31 10:31 | PC.NURSE ---
Dr severino notified of patient return from testing; also that BG is 329 now instructions to give noon dose of ss insulin now also okayed to give other morning medications late.
--- NOTE | 2019-10-31 12:00 | PC.OT ---
OT note: OT eval attempted this morning but pt at stress test. Will attempt again later as able.
--- NOTE | 2019-10-31 16:24 | P.PN_ITS ---
Subjective Subjective: Interval history: Patient awake in bed at time of exam. Patient this morning reported she did not have any issues sleeping overnight, slept well with no chest pain or shortness of breath. Able to lie flat. Did have desaturation overnight, oxygen by nasal cannula was applied. Discussed with patient concern for obstructive sleep apnea, she reported that she has been james ble to tolerate CPAP in the past. Patient evaluated again this evening discussed with patient concern for abnormal stress test and cardiology consultation. Discussed with patient the risk and benefits of further cardiac work-up and intervention, she reported that she would like to discuss with cardiology further she is leaning towards further cardiac work-up but would like to discuss with cardiology and her granddaughter. Vitals/I&O/Wt Last Vital Signs Temp 983 F H 10/31/19 15:00 Pulse 78 10/31/19 15:00 Resp 30 H 10/31/19 15:00 BP 134/58 10/31/19 15:00 Pulse Ox 96 10/31/19 15:00 10/31/19 10/31/19 10/31/19 06:59 14:59 22:59 Intake Total 880 / 880 600 / 600 Balance 880 / 880 600 / 600 Weight last 48 hrs Weight 123.241 kg Weight 125.191 kg Physical Exam Const: COMMON NORMALS: patient oriented x3 and alert GENERAL APPEARANCE: cooperative ORIENTATION/CONSCIOUSNESS: Yes awake, Yes oriented to person, Yes oriented to place and Yes oriented to time HENMT: COMMON NORMALS: normocephalic and atraumatic HEAD & SCALP: normocephalic and atraumatic Eye: COMMON NORMALS: Equal, round and reactive pupils present PUPIL: Yes Equal, round and reactive pupils present Neck/C-Spine: COMMON NORMALS: supple GENERAL: Yes normal visual inspection Resp: COMMON NORMALS: normal respiratory effort and clear to auscultation bilaterally EFFORT & INSPECTION: Yes able to speak in complete sentences AUSCULTATION: clear to auscultation bilaterally, no rhonchi and no wheezes OTHER: No appreciable wheezing or rhonchi, no crackles Cardio: COMMON NORMALS: regular rate, regular rhythm and No murmurs present (Cardio) RATE: regular rate RHYTHM: regular rhythm GI: COMMON NORMALS: Soft to palpation and non-tender INSPECTION: No abdominal distension AUSCULTATION: Yes normoactive bowel sounds PALPATION: Yes Soft to palpation Extremity: COMMON NORMALS: no calf tenderness NARRATIVE EXTREMITY EXAM: 1+ pitting edema in the lower extremities bilaterally, negative Homans sign in the lower extremities bilaterally Neuro: COMMON NORMALS: patient oriented x3, CN's II-XII intact bilaterally, moves all extremities and no focal motor deficits SENSORIUM/ORIENTATION: Yes alert, Yes oriented to person, Yes oriented to place and Yes oriented to time SPEECH: speech normal Psych: COMMON NORMALS: mental status grossly normal and cooperative Skin: COMMON NORMALS: no rashes or lesions noted GENERAL SKIN EXAM: no rashes or lesions noted Data : 10/31/19 03:37 10/31/19 03:37 A&P Assessment and plan (1) TIA (transient ischemic attack): Question of TIA, however cardiac events may have precipitated other symptoms including paresthesias in arm CT head negative for acute pathology Continue aspirin, Plavix, statin No deficits Carotid ultrasound shows bilateral ICA stenosis less than 50% Status: Acute (2) Chest pain: Patient with abnormal stress test, this was discussed with Dr. Shay Cardiology consultation, appreciate recommendations and assistance in patient's care Patient had chest pain with right arm paresthesias initially felt to be related to TIA, however may have been cardiac etiology Patient is pain-free at this time Stress test showed medium to large size perfusion abnormality of moderate to severe in the mid to apical anterior, mid to apical anterior lateral, mid to apical anterior septal and apical sparks with mild reversibility. Patient unable to lie supine therefore this could alter results. Discussed with patient and with her granddaughter, Rebecca MARIE, about the risk and b enefit of further cardiac intervention. Patient wishes to discuss further with cardiology at this time about consideration of angiogram Continued on aspirin, Plavix, statin, Imdur, losartan, metoprolol Status: Acute (3) Chronic diastolic congestive heart failure: Chronic diastolic CHF with mild acute exacerbation Continue on metoprolol, losartan, Imdur, torsemide 40 mg twice daily Given one-time dose of metolazone on admission, appears to be euvolemic at this time Patient with decreased LVEF at 45% from previous studies. Further echocardiogram is pending. We will follow-up with cardiology recommendations. Status: Acute (4) DM2 (diabetes mellitus, type 2): Placed on sliding scale insulin as needed Status: Acute (5) Hyperlipidemia: Continue atorvastatin 80 mg at bedtime Status: Acute (6) Benign essential HTN: Continue isosorbide, losartan, metoprolol and torsemide Status: Acute (7) CAD (coronary artery disease): With a history of stent placement by Dr. Pagan Patient reports being told she requires 2 more stents, will discuss further with cardiology Status: Acute (8) Carotid stenosis: Continue aspirin, statin, Plavix Bilateral ICA stenosis less than 50% Status: Acute (9) Chronic kidney disease: Followed by nephrology in [place], unknown physician per family. Family at bedside reports that last labs showed GFR around 20-30 Discussed with patient the potential for further cardiac intervention. Discussed with patient risk of benefits due to her renal function Status: Acute (10) Obesity: Status: Acute Additional A&P Information VTE prophylaxis: Heparin Diet: Cardiac, carbohydrate consistent CODE STATUS: DNR/DNI, discussed with patient and granddaughter in the ED at time of admission Attestations Medical Necessity Statement*: Change to inpatient admission due to abnormal stress test and need for further hospitalization Coding Level of Care Code Acute Mutual Fund Accountant for Chg Fwd Diagnoses TIA (transient ischemic attack) G45.9 Chest pain R07.9 Chronic diastolic congestive heart failure I50.32 DM2 (diabetes mellitus, type 2) E11.9 Hyperlipidemia E78.5 Benign essential HTN I10 CAD (coronary artery disease) I25.10 Carotid stenosis I65.29 Chronic kidney disease N18.9 Obesity E66.9
[2019-10-31 16:34] LABS: Glucose Point of Care 255 mg/dL (70-110)
--- NOTE | 2019-10-31 18:12 | PM.CONSULT ---
Providers/Reason For Consult Consulting Physican/Specialty*: DR. Shay, Cardiology Reason for Consult*: Chest pain, abnormal stress test Attending Physician: Cheyanne Osman DO Primary Care Provider: Cj Croft History of Present Illness History of Present Illness 79-year-old lady with past medical history of coronary artery disease s/p px LAD BRENDA in 07/2018 for persistent SOB despite normal sestamibi stress test, chronic kidney disease stage 4,h/o thyroid nodule, congestive heart failure, diabetes mellitus type II, hypertension and obesity who presented to the emergency department yesterday for right-sided chest pain.She usually follows up with Dr. Pagan. Patient was not feeling well in the evening after dinner and then suddenly this morning at approximately 4 AM she developed right sided paresthesias, dizziness, nausea, right-sided facial droop and felt unsteady. She reported that she was having right-sided chest pain that felt as a heaviness in her chest. She has noticed leg swelling and abdominal distention for past 3 weeks. She also complains of exertional dyspnea with minimal exertion. She suddenly woke up with 7 pound weight gain but denies any dietary indiscretion. Patient was brought into the ER for further evaluation and treatment. Patient denies any recent illness, no fevers or chills or cough. Patient is on home oxygen 2 L by nasal cannula on an as-needed basis with exertion. She has chronic kidney disease and is followed by a dip painter in [place]. Patient's symptoms of dizziness, nausea, paresthesias and facial droop have now resolved. She had stress test that showed moderate perinfarct ischemia in anterior, anterolateral and apical sparks. I have been asked to assist in further management. Review of Systems Const: Denies: fever(s) or chills Eyes: Denies: change in vision ENMT: Denies: nasal congestion Card: Reports: chest pain; Denies: palpitations or edema Resp: Reports: other (Exertional dyspnea); Denies: dyspnea, productive cough or hemoptysis GI: Denies: abdominal pain, nausea, vomiting, diarrhea, constipation, hematochezia or melena : Denies: dysuria or hematuria Musc: Denies: extremity pain or muscle cramps Skin/Breast: Denies: rash or new lesions Neuro: Reports: numbness in extremities and other (Right-sided facial droop that is now resolved, unsteady gait, improved, dizziness that is now improved); Denies: headache(s) Psych: Denies: anxiety or depression Endo: Denies: polyuria or hot flashes Nelson/Lymph: Denies: easy bruising or easy bleeding Meds/Allergies Home Medications and Allergies Home Medications Medication Instructions Recorded Confirmed Last Taken Type aspirin 81 mg tablet,delayed 81 mg PO DAILY 05/11/19 10/30/19 10/29/19 History release atorvastatin 80 mg tablet 80 mg PO BEDTIME tab 05/11/19 10/30/19 10/29/19 History clopidogrel 75 mg tablet 75 mg PO DAILY 05/11/19 10/30/19 10/29/19 History losartan 50 mg tablet 75 mg PO DAILY tab 05/11/19 10/30/19 10/29/19 History diphenhydramine HCl [Benadryl] 25 mg PO BID PRN 05/18/19 10/30/19 10/29/19 History gabapentin 300 mg PO BID 05/18/19 10/30/19 10/29/19 History isosorbide mononitrate 30 mg PO DAILY 05/18/19 10/30/19 10/29/19 History torsemide 20 mg tablet 40 mg PO BID tab 05/24/19 10/30/19 10/29/19 History cholecalciferol (vitamin D3) 25 mcg PO DAILY 10/30/19 10/30/19 10/29/19 History [Vitamin D3] chromium picolinate 1,000 mcg PO EVERY OTHER DAY 10/30/19 10/30/19 Unknown History cyanocobalamin (vitamin B-12) 1,000 mcg PO DAILY 10/30/19 10/30/19 10/29/19 History [Vitamin B-12] insulin NPH and regular human See Rx Instructions .ROUTE .COMPLEX 10/30/19 10/30/19 10/29/19 History [Novolin 70/30 U-100 Insulin] 30 units magnesium oxide 400 mg PO EVERY OTHER DAY 10/30/19 10/30/19 10/29/19 History metoprolol tartrate 25 mg PO BID 10/30/19 10/30/19 10/29/19 History potassium chloride See Rx Instructions .ROUTE .COMPLEX 10/30/19 10/30/19 Unknown History Allergies Allergy/AdvReac Type Severity Reaction Status Date / Time codeine Allergy Unknown Verified 10/30/19 07:59 [From [employer] with Codeine] etodolac Allergy Unknown Verified 10/30/19 07:59 ibuprofen Allergy ALGY-Hives Verified 10/30/19 07:59 naproxen [From Anaprox] Allergy Unknown Verified 10/30/19 07:59 simvastatin Allergy Unknown Verified 10/30/19 07:59 Sulfa (Sulfonamide Allergy Unknown Verified 10/30/19 07:59 Antibiotics) Current Medications Current Medications Generic Name Dose Route Start Last Admin Trade Name Freq PRN Reason Stop Dose Admin Aspirin 81 mg 10/30/19 14:43 10/31/19 10:06 Aspirin Ec PO 81 mg DAILY BUFFY Administration Atorvastatin Calcium 80 mg 10/30/19 21:00 10/30/19 20:33 Lipitor PO 80 mg BEDTIME BUFFY Administration Clopidogrel Bisulfate 75 mg 10/30/19 14:43 10/31/19 10:09 Plavix PO 75 mg DAILY BUFFY Administration Cyanocobalamin 1,000 mcg 10/31/19 09:00 10/31/19 10:09 Vitamin B-12 PO 1,000 mcg DAILY BUFFY Administration Diphenhydramine HCl 25 mg 10/30/19 14:43 10/31/19 10:09 Benadryl PO 25 mg BID PRN Administration Itching Gabapentin 300 mg 10/30/19 18:00 10/31/19 10:05 Neurontin PO 300 mg BID BUFFY Administration Heparin Sodium (Beef Lung) 5,000 unit 10/30/19 14:43 10/31/19 15:19 Heparin SUBCUT 5,000 unit Q12H BUFFY Administration Insulin Aspart 0 unit 10/30/19 21:00 10/30/19 20:33 Novolog SUBCUT 5 unit BEDTIME BUFFY Administration Protocol Insulin Aspart 0 unit 10/30/19 14:43 10/31/19 17:27 Novolog SUBCUT 8 unit TIDWM BUFFY Administration Protocol Isosorbide Mononitrate 30 mg 10/30/19 14:43 10/31/19 10:09 Imdur PO 30 mg DAILY BUFFY Administration Losartan Potassium 75 mg 10/30/19 14:43 10/31/19 10:06 Cozaar PO 75 mg DAILY BUFFY Administration Metoprolol Tartrate 25 mg 10/30/19 18:00 10/31/19 10:09 Lopressor PO 25 mg BID BUFFY Administration Torsemide 40 mg 10/30/19 18:00 10/31/19 10:08 Demadex PO 40 mg BID BUFFY Administration Vitamin D 1,000 unit 10/31/19 09:00 10/31/19 10:08 Vitamin D3 PO 1,000 unit DAILY BUFFY Administration PFSH Acute PFSH: Medical History Allergy to Betadine Benign essential HTN CAD (coronary artery disease) Carotid stenosis Chronic diastolic congestive heart failure Chronic kidney disease DM2 (diabetes mellitus, type 2) Goiter Hyperlipidemia Hypertrophy of inferior nasal turbinate Nasal septal deformity Obesity Postherpetic polyneuropathy Postnasal drip Surgical History H/O partial thyroidectomy H/O: hysterectomy History of back surgery Hx of cholecystectomy Status post cardiac catheterization Family History Mother CAD (coronary artery disease) Other Diabetes Myocardial infarction Social History Smoking and tobacco status: never smoked Alcohol intake: former Substance/Drug Use: never Vitals/I&O/Wt Last Vital Signs Temp 983 F H 10/31/19 15:00 Pulse 62 10/31/19 16:55 Resp 30 H 10/31/19 15:00 BP 134/58 10/31/19 15:00 Pulse Ox 94 10/31/19 16:55 10/31/19 10/31/19 10/31/19 06:59 14:59 22:59 Intake Total 880 / 880 600 / 600 120 / 720 Balance 880 / 880 600 / 600 120 / 720 Weight last 48 hrs Weight 271 lb 11.2 oz Weight 276 lb Physical Exam Const: COMMON NORMALS: no acute distress, patient oriented x3 and alert GENERAL APPEARANCE: cooperative, comfortable, well kempt and well hydrated NUTRITIONAL APPEARANCE: obese HENMT: COMMON NORMALS: hearing grossly normal bilaterally and external ears normal FACE & SINUS: normal facial exam NOSE: no Epistaxis present EXTERNAL EAR: Yes external ears normal MOUTH: lip normal Eye: COMMON NORMALS: EOMs intact bilaterally and no scleral icterus GENERAL EYE: appearance normal, both eyes and all related structures ALIGNMENT: Yes alignment normal Neck/C-Spine: COMMON NORMALS: no lymphadenopathy, supple and no JVD GENERAL: Yes normal visual inspection and Yes trachea midline CAROTIDS: Yes normal carotid upstroke Chest: COMMONS NORMALS: normal inspection of the chest and normal palpation of entire chest wall CHEST: Yes Symmetrical chest wall rise and No tenderness Resp: COMMON NORMALS: clear to auscultation bilaterally EFFORT & INSPECTION: Yes able to speak in complete sentences, No tachypneic, No respiratory distress, No labored and No Actively coughing AUSCULTATION: clear to auscultation bilaterally, no crackles, no rales, no rhonchi and no wheezes Cardio: COMMON NORMALS: no JVD, regular rate, regular rhythm, S1 normal heart sound present, S2 normal heart sound present and Peripheral pulses 2+ throughout PALPATION: normal PMI RATE: regular rate RHYTHM: regular rhythm HEART SOUNDS: S1 normal heart sound present, S2 normal heart sound present, no gallops and no murmurs BRUITS: no carotid bruits PERIPHERAL PULSES: Peripheral pulses 2+ throughout, radial pulses present, posterior tibial pulses present and dorsalis pedis present Extremity: GENERAL: No cyanosis, Yes edema (1+ edema bilateral lower extremities) and No pallor Neuro: COMMON NORMALS: patient oriented x3 and no focal motor deficits SENSORIUM/ORIENTATION: Yes alert Psych: COMMON NORMALS: Normal thought process present and speech normal APPEARANCE: Yes well kempt SPEECH: Yes normal speech MOOD & AFFECT: Yes euthymic mood THOUGHT PROCESS: Normal thought process present Data Imaging^: Other Imaging: Radiologist's impression: Coronary angiogram (08/15/2018) Diagnostic Findings Angiography reveals a very short but normal left main. The circumflex contains mild diffuse disease. The LAD is a small vessel but is severely diffusely diseased in the proximal portion at the takeoff of a diagonal branch. This occurs at an area of nearly a hairpin turn. The lesion is at least 95% stenosed, irregular and eccentric. The right coronary artery is a large dominant vessel and contains a 40% stenosis in the midportion. Otherwise, the vessel is essentially normal. LM has 0% stenosis. CX has 0% stenosis. RCA has 0% stenosis. Proximal Left Anterior Descending Coronary Artery: Severe 95% stenosis, 12.00 mm in length, moderately calcified, ulcerated, eccentric plaque, excessive proximal segment tortuosity, moderately angulated segment, CHRISTOFER: 2 flow, high/c lesion. Coronary angiography shows right dominance. Interventional Findings The procedure was done from the right radial artery with some difficulty because there was vessel spasm. Patient had severe pain upon manipulation of the guide. She is short and very heavy so the guide fit snugly in a short left main but preferred the circumflex. It was difficult to get the guide positioned in order to advance the wire to the LAD. Once this was accomplished a balloon angioplasty was performed of the lesion with some difficulty. A stent was very difficult to pass but eventually was placed at the lesion and deployed. An adequate angiographic result was obtained. Proximal Left Anterior Descending Coronary Artery: 95% stenosis treated with AB TREK 2.50X12 RX BALLOON and VINCENT Galvan GARETT 2.5X15 BRENDA. 0% residual stenosis, CHRISTOFER: 3 flow. Successful intervention. #Lexiscan myocardial perfusion imaging May 2018: Medium-sized fixed perfusion abnormality of mid to apical anterior anterolateral, apical septal and apical sparks. ?Suggestive of old myocardial infarction or scarring. ?No ischemia. ?Left ventricular ejection fraction of 56%. ?Hypokinesis of mid to apical anterior mid to apical lateral and apical sparks. #Echocardiogram May: Technically difficult study. ?Left ventricular ejection fraction at lower limits of normal. ?Mildly increased left atrial size. ?Mild to moderate mitral valve regurgitation. ?Mild aortic valve calcification. # Lexiscan sestamibi MPI IMPRESSIONS 1. Medium to large size perfusion abnormality of moderate to severe severity of mid to apical anterior, mid to apical anterolateral, mid to apical anteroseptal and apical sparks with mild reversibility noted in mid to apical anteroseptal and mid to apical anterior and anterolateral spraks on supine stress images. 2. This may represent old myocardial infarction in left anterior descending/circumflex artery territory with moderate area of jessica-infarct ischemia. In absence of prone imaging attenuation artifact cannot be completely ruled out. 3. There is mildly reduced left ventricular systolic function with ejection fraction at 44%. 4. Transient ischemic dilation index increased at 1.28. 5. Compared to her previous study dated 06/22/2018, there is moderate and area of jessica-infarct ischemia in LAD/circumflex artery territory. EKG LOW QRS VOLTAGE IN PRECORDIAL LEADS [QRS DEFLECTION < 1.0 mV IN CHEST LEADS] ANTEROSEPTAL MYOCARDIAL INFARCTION , OF INDETERMINATE AGE [40+ ms Q WAVE IN V1-V4] Compared to ECG 08/17/2018 13:31:53 First degree AV block no longer present Left-axis deviation no longer present Myocardial infarct finding still present A&P Assessment and plan (1) Chest pain: Status: Acute Qualifiers: Chest pain type: unspecified Qualified Code(s): R07.9 - Chest pain, unspecified (2) Abnormal nuclear stress test: Case discussed with the patient and risks and benefits discussed with patient. She is agreeable to proceed with cardiac cath in am with Dr. Pagan. -continue ASA, plavix, imdur and statin. -remains CP free presently. Status: Acute (3) Chronic diastolic congestive heart failure: Fairly compensated. compensated, continue diuretics at home dose Status: Acute (4) CAD (coronary artery disease): Status: Acute Qualifiers: Coronary Disease-Associated Artery/Lesion type: [place] artery [place] vs. transplanted heart: [place] heart Associated angina: with other forms of angina Qualified Code(s): I25.118 - Atherosclerotic heart disease of [place] coronary artery with other forms of angina pectoris (5) Hyperlipidemia: Status: Acute Qualifiers: Hyperlipidemia type: mixed hyperlipidemia Qualified Code(s): E78.2 - Mixed hyperlipidemia (6) DM2 (diabetes mellitus, type 2): Status: Acute Qualifiers: Diabetes mellitus intermediate insulin use: with oil heaterman use Diabetes mellitus complication status: with kidney complications Diabetes mellitus complication detail: with chronic kidney disease (7) Obesity: Status: Acute Qualifiers: Obesity classification: adult class 3 (BMI >= 40) (8) Chronic kidney disease: Status: Acute Qualifiers: Chronic kidney disease stage: stage 4 (severe) Qualified Code(s): N18.4 - Chronic kidney disease, stage 4 (severe) Additional A&P Information Thank you for allowing me to participate in patient's care. Please feel free to call with questions or concerns. Coding Level of Care Code Acute Community Case Manager for Luly Kenney Diagnoses Chest pain R07.9 Chest pain type: unspecified Abnormal nuclear stress test R94.39 Chronic diastolic congestive heart failure I50.32 CAD (coronary artery disease) I25.118 Coronary Disease-Associated Artery/Lesion type: [place] artery [place] vs. transplanted heart: [place] heart Associated angina: with other forms of angina Hyperlipidemia E78.2 Hyperlipidemia type: mixed hyperlipidemia DM2 (diabetes mellitus, type 2) E11.9 Diabetes mellitus oil heaterman insulin use: with intermediate use Diabetes mellitus complication status: with kidney complications Diabetes mellitus complication detail: with chronic kidney disease Obesity E66.9 Obesity classification: adult class 3 (BMI >= 40) Chronic kidney disease N18.4 Chronic kidney disease stage: stage 4 (severe)
--- NOTE | 2019-10-31 19:01 | NMCV_ITS ---
NM radha perf SPECT r/s* [id number] Jing Martinez Age: 79 Gender: F : 1940 Exam Date: 10/31/2019 07:31 Ordering Phys: Cheyanne Osman DO Technologist: SKYLAR Shah Exam Location: [facility] Indications: Chest pain STRESS TEST [facility] IMAGE PROTOCOL Rest/Stress 1 Lexiscan Day Radiopharmaceutical Dose (mCi) Administration Site Administered by Rest: Tc-99m 10.9 IV SKYLAR Marinelli Sestamibi Stress:Tc-99m 33.0 IV SKYLAR Shah Sestamianastasia Rest: 31-Oct-2019 60 Discovery 630 Stress: 31-Oct-2019 45 Discovery 630 0.4mg Lexiscan. Supine position only as patient was unable to lay prone. SPECT RESULTS Technical Quality: Good Raw Data Analysis: Breast attenuation, Soft tissue attenuation Image Corrections: No attenuation or motion correction applied Summed Stress Score: 23 Summed Rest Score: 17 Summed Difference Score: 6 PERFUSION FINDINGS Medium to large size perfusion abnormality of moderate to severe severity of mid to apical anterior, mid to apical anterolateral, mid to apical anteroseptal and apical sparks on rest images with mild reversibility noted in mid to apical anteroseptal and mid to apical anterior and anterolateral sparks on supine stress images. FUNCTIONAL RESULTS (calculated via Gated SPECT) Stress Image LV EF (%): 44 Stress EDV (mL):131 TID: 1.28 Stress ESV (mL):74 FUNCTIONAL FINDINGS: The left ventricle is normal in size. Transient Ischemia Dilatation of 1.3. There is mildly reduced left ventricular systolic function. The left ventricular ejection fraction is reduced with a value of 44%. There is hypokinesis of mid to apical anterior and apical sparks. Increased end-diastolic and end-systolic volumes. IMPRESSIONS 1. Medium to large size perfusion abnormality of moderate to severe severity of mid to apical anterior, mid to apical anterolateral, mid to apical anteroseptal and apical sparks with mild reversibility noted in mid to apical anteroseptal and mid to apical anterior and anterolateral sparks on supine stress images. 2. This may represent old myocardial infarction in left anterior descending/circumflex artery territory with moderate area of jessica-infarct ischemia. In absence of prone imaging attenuation artifact cannot be completely ruled out. 3. There is mildly reduced left ventricular systolic function with ejection fraction at 44%. 4. Transient ischemic dilation index increased at 1.28. 5. Compared to her previous study dated 06/22/2018, there is moderate and area of jessica-infarct ischemia in LAD/circumflex artery territory. Vale Shay MD (Electronically Signed) Final Date: 31 October 2019 16:02 S
--- NOTE | 2019-10-31 19:39 | PC.NURSE ---
Received report from Sabrina Valero RN. Patient resting in bed speaking with Dr Shay. Patient assisted up to bathroom and prepared for shower. Patient in shower presently. Patient denies other needs or discomforts. No distress observed.
[2019-10-31] MEDS: atorvastatin 40 mg Tablet 80 MG PO (21:45)
[2019-11-01] VITALS (48 sets, daily range): BP systolic 92–202; BP diastolic 43–92; PULSE 64–102; RESP 12–22; TEMP 36.2–37; O2SAT 82–100
[2019-11-01 00:20] LABS: Glucose Point of Care 217 mg/dL (70-110)
--- NOTE | 2019-11-01 00:37 | PC.NURSE ---
Patient c/o not having a bowel movement in a couple of days. Provided warmed prune juice per patient request.
[2019-11-01] MEDS: heparin 5,000 unit/mL INJ 1 mL 5000 UNIT SUBCUT (03:26)
[2019-11-01 04:00] LABS: Basophils % 0.4 %; Eosinophils # 0.3 10^3/uL (0.0-0.8); Hematocrit 32.5 % (37.0-47.0); Hemoglobin 9.7 g/dL (11.5-15.3); Lymphocytes # 1.9 10^3/uL (0.8-4.8); Lymphocytes % 19.7 %; Mean Corpuscular HGB Conc 29.8 g/dL (30.0-36.0); Mean Corpuscular Hemoglobin 28.2 pg (28.0-34.0); Mean Corpuscular Volume 94.5 fL (81-99); Mean Platelet Volume 9.9 fL (7.4-10.4); Monocytes % 10.1 %; Neutrophils # 6.34 10^3/uL (1.8-7.7); Neutrophils % 66.4 %; Nucleated Red Blood Cells % 0 %; Platelet Count 300 10^3/cmm (130-400); Red Blood Count 3.44 10^6/uL (4.1-5.3); Red Cell Distribution Width 13.2 % (12.1-15.1); White Blood Count 9.6 10^3/uL (4.0-10.0)
[2019-11-01 04:41] LABS: Anion Gap 13.3 (5-19); Blood Urea Nitrogen 39 mg/dL (8-23); Calcium 8.9 mg/dL (8.5-10.5); Carbon Dioxide 31 mmol/L (22-29); Chloride 95 mmol/L (98-107); Glucose 197 mg/dL (65-115); Osmolality Calculated 283 mOsm/kg (285-295); Potassium 4.3 mmol/L (3.5-5.1); Sodium 135 mmol/L (136-145)
[2019-11-01 06:29] LABS: Glucose Point of Care 228 mg/dL (70-110)
--- NOTE | 2019-11-01 07:31 | XACV_ITS ---
Exam Room: [facility] Ht: 165 cm Wt: 124 kg BSA: 2.45 m2 Gender: Female : 1940 Any Known Allergies: Other Exam Priority: Routine Procedure(s): Procedure Description: Diagnostic procedure Procedure Description: Left Heart Catheterization Diagnostic Cath Status: Elective Diagnostic Findings Patient with mild dementia who has known coronary artery disease. Over a year ago had a stent placed to the LAD. On this occasion some very atypical symptoms that were actually initially thought of as stroke symptoms. Chest pain is very atypical. Stress testing was done and showed a mild abnormality in the distribution of the LAD. Cardiac catheterization was recommended. Previous angiogram was done via the right radial artery. Today the patient does not have a pulse in the right radial artery and she cannot hold her arm out sufficiently in order to attempt a radial approach. Therefore, the procedure was done from the right common femoral artery. Angiography reveals right coronary artery dominance. The left main is normal. The LAD is occluded proximally at the level of the stent. The circumflex is patent and there are no significant lesions. There are minor luminal irregularities. The right coronary artery is the dominant vessel and is patent. There are no significant lesions. A brief attempt with 2 separate wires was made to cross the lesion. It was unsuccessful. This is a chronic total occlusion. Interventional RX Recommendation: medical therapy and/or counseling Diagnostic RX Recommendation: medical therapy and/or counseling Clinical Evaluation EBL: 5mL-10mL Procedural Details Procedure Consent Obtained. Admit Source: Out Patient. Pre-Procedure Time Out. Identified patient by full name and date of as verbalized by the patient/guarantor. Does the consent match the physician's order: Yes. Accurate & Complete Informed Consent: Yes. Inpatient/Outpatient History & Physical on Chart: Yes. If H&P is completed, is and addenduem needed: N/A; If yes, is the addendum complete: N/A. Visualize and Verify Site with Patient/Guarantor: N/A. Relevant Radiology Images available: N/A. Pre-op teaching completed and patient verbalized understanding. The risks, benefits, and alternatives of sedation and/or procedure were discussed by physician. The patient agrees to continue. Procedure started. Correct patient, site and procedure confirmed by cath team. PERRLA. Strong, equal hand executive communications manager bilaterally. Lungs clear x 5 lobes. IV Site on Arrival: 22 gauge in the left hand. Oxygen started at 2liters/min via nasal canula. bilateral groins was prepped with chloroprep then draped in the usual sterile fashion. right radial was prepped with chloroprep then draped in the usual sterile fashion. Physician notified. Baseline sample Acquired. HR: 91 BPM. Physician arrived. Physician scrubbed in. Immediate Pre-Procedure Time Out. Correct Patient: Yes; Correct Procedure: Yes; Correct Site: Yes; Correct Patient Position: Yes; Correct Supplies: Yes; Dried Flammable Prep: Yes; Blood Products Available: N/A;. Lidocaine 1% infiltrated to the right groin. sat: 98%. sats checked periodically due to pulse ox malfunction. Arterial access obtained with micropuncture set. A 5 stateless JL4 catheter in over wire. Multiple views taken of left coronary artery. Catheter out. A 5 stateless JR4 catheter in over wire. sat: 94%. Catheter out. 6 stateless XB 3 guide catheter was inserted over the wire. [place] guidewire was advanced through the guide catheter to lesion in the prox LAD. sat: 96%. [place] guidewire was advanced through the guide catheter to lesion in the prox LAD. cougar wire out. sat:98%. runthrough out. guide catheter out. Sheath(s) sutured into position with 2-0 silk and sterile 4x4's and Op-site applied over the site. No oozing or signs and symptoms of hematoma noted. Post Procedure: Pulses reassessed and unchanged. PERRLA. Strong, equal hand executive communications manager bilaterally. No VTE prophylaxis required. Medication's Wasted: Lidocaine 1% = 10 mg. Medication's Wasted: Heparin = 4000 units. Medication's Wasted: Other = versed 1 mg. Medication's Wasted: Other = fentanyl 50 mg. Total IV fluids: 61.4 mL. Contrast type used: Visipaque 320 mgI/mL, 500 mL bottle. Contrast Material : Visipaque 61 ml. Post-op diagnosis: CAD. Complications: none. A Suture was successful obtaining hemostatsis at the Right Femoral artery insertion site. Estimated blood loss: 5mL-10mL. Procedure completed. Patient transferred by bed to 1st floor. [facility] Clinical Fraility Score: 6: Moderately Frail. Monogram And Letter Paster Indications: Suspected CAD. Chest Pain Symptom Assessment: Atypical Angina. Cardiovascular Instability: No. Vital chart was stopped. Site: Right Femoral artery Sheath Size: 6 Fr Hemostasis Method: Suture Hemostasis Success: Successful Procedure Medications Start: 8:12 AM Stop: 8:12 AM Medication: Versed Amount: 1 mg Route: I.V. Start: 8:12 AM Stop: 8:12 AM Medication: Fentanyl Amount: 50 mcg Route: I.V. I, the attending physician, have reviewed and verified all procedure medications. Yes, all medications given per verbal order History/Risk Factors Hypertension: Yes Dyslipidemia: Yes Diabetic Therapy: Insulin Peripheral Arterial Disease (PAD): No Myocardial Infarction (W[place]): No Obesity: Yes Renal Disease: Yes Tobacco Use: Never Prior Interventions PCI: Yes CABG: No Valve Surgery: No Date of PCI: 08/15/2018 Report Signatures Finalized by:Dr. Rohan Pagan MD on 11/01/2019 9:03:40 AM
[2019-11-01 09:34] LABS: Glucose Point of Care 263 mg/dL (70-110)
[2019-11-01] MEDS: cholecalciferol (vitamin D3) 1,000 unit Tablet 1000 UNIT PO (10:09)
[2019-11-01] MEDS: metoprolol tartrate 50 mg Tablet 25 MG PO ×2 (10:10→17:31)
[2019-11-01] MEDS: clopidogrel 75 mg Tablet PO (10:10)
[2019-11-01] MEDS: magnesium oxide 400 mg tablet PO (10:10)
[2019-11-01] MEDS: cyanocobalamin 1,000 mcg Tablet 1000 MCG PO (10:10)
[2019-11-01] MEDS: TORSEmide 20 mg Tablet 40 MG PO ×2 (10:10→17:29)
[2019-11-01] MEDS: gabapentin 300 mg Capsule PO ×2 (10:10→17:31)
[2019-11-01] MEDS: isosorbide mononitrate ER 30 mg Tablet PO (10:11)
[2019-11-01] MEDS: aspirin 81 mg EC Tablet PO (10:11)
[2019-11-01] MEDS: sodium chloride 0.9% 1,000 ML 100 ML IV (10:12)
--- NOTE | 2019-11-01 11:05 | PC.OT ---
Patient has just returned from cardiac procedure. Will hold until tomorrow due to this. -Judie Francis, MOTR/L
[2019-11-01 11:07] LABS: Glucose Point of Care 261 mg/dL (70-110)
--- NOTE | 2019-11-01 13:49 | P.PN_ITS ---
Subjective Subjective: Interval history: Patient was seen and evaluated, asleep in bed at time of exam. Upon waking she reported that she was doing well with no chest pain or shortness of breath. Patient had just been brought back from the [employer], discussed with patient procedure and the finding of chronic total occlusion, no intervention performed during procedure. She verbalized understa nding. Vitals/I&O/Wt Last Vital Signs Temp 98.0 F 11/01/19 11:02 Pulse 80 11/01/19 11:02 Resp 19 H 11/01/19 11:02 BP 144/59 11/01/19 11:02 Pulse Ox 99 11/01/19 11:02 10/31/19 11/01/19 11/01/19 22:59 06:59 14:59 Intake Total 240 / 840 240 / 240 Output Total 1000 / 1000 Balance 240 / 840 -760 / -760 Weight last 48 hrs Weight 124.012 kg Weight 123.241 kg Physical Exam 2 Const: COMMON NORMALS: patient oriented x3 and alert GENERAL APPEARANCE: cooperative ORIENTATION/CONSCIOUSNESS: Yes awake, Yes oriented to person, Yes oriented to place and Yes oriented to time HENMT: COMMON NORMALS: normocephalic and atraumatic HEAD & SCALP: normocephalic and atraumatic Eye: COMMON NORMALS: Equal, round and reactive pupils present PUPIL: Yes Equal, round and reactive pupils present Neck/C-Spine: COMMON NORMALS: supple GENERAL: Yes normal visual inspection Resp: COMMON NORMALS: normal respiratory effort and clear to auscultation bilaterally EFFORT & INSPECTION: Yes able to speak in complete sentences AUSCULTATION: clear to auscultation bilaterally, no rhonchi and no wheezes OTHER: No appreciable wheezing or rhonchi, no crackles Cardio: COMMON NORMALS: regular rate, regular rhythm and No murmurs present (Cardio) RATE: regular rate RHYTHM: regular rhythm GI: COMMON NORMALS: Soft to palpation and non-tender INSPECTION: No abdominal distension AUSCULTATION: Yes normoactive bowel sounds PALPATION: Yes Soft to palpation Extremity: COMMON NORMALS: no calf tenderness NARRATIVE EXTREMITY EXAM: 1+ pitting edema in the lower extremities bilaterally Neuro: COMMON NORMALS: patient oriented x3, CN's II-XII intact bilaterally, moves all extremities and no focal motor deficits SENSORIUM/ORIENTATION: Yes alert, Yes oriented to person, Yes oriented to place and Yes oriented to time SPEECH: speech normal Psych: COMMON NORMALS: mental status grossly normal and cooperative Skin: COMMON NORMALS: no rashes or lesions noted GENERAL SKIN EXAM: no [place] hes or lesions noted Urinary Catheter Management^: [place]: Cath Placed During This Visit: yes Urinary Catheter Date of Insertion: 11/01/19 Urinary Catheter Time of Insertion: 09:30 Data : 11/01/19 03:10 11/01/19 03:10 A&P Assessment and plan (1) TIA (transient ischemic attack): Question of TIA, however cardiac events may have precipitated other symptoms including paresthesias in arm CT head negative for acute pathology Continue aspirin, Plavix, statin No deficits Carotid ultrasound shows bilateral ICA stenosis less than 50% Status: Acute (2) Chest pain: Patient with abnormal stress test, this was discussed with Dr. Shay Cardiac cath today revealed chronic total occlusion of the stent in LAD, will follow up with cardiology recommendations Will monitor renal function in the post-cath. Continued on aspirin, Plavix, statin, Imdur, losartan, metoprolol Status: Acute Qualifiers: Chest pain type: unspecified Qualified Code(s): R07.9 - Chest pain, unspecified (3) Chronic diastolic congestive heart failure: Chronic diastolic CHF with mild acute exacerbation Continue on metoprolol, losartan, Imdur, torsemide 40 mg twice daily Given one-time dose of metolazone on admission, appears to be euvolemic at this time Patient with decreased LVEF at 45% from previous studies. Further echocardiogram is pending. We will follow-up with cardiology recommendations. Status: Acute (4) DM2 (diabetes mellitus, type 2): Placed on sliding scale insulin as needed Status: Acute Qualifiers: Diabetes mellitus complication detail: with chronic kidney disease Diabetes mellitus complication status: with kidney complications Diabetes mellitus long chain beamer insulin use: with usp use (5) Hyperlipidemia: Continue atorvastatin 80 mg at bedtime Status: Acute Qualifiers: Hyperlipidemia type: mixed hyperlipidemia Qualified Code(s): E78.2 - Mixed hyperlipidemia (6) Benign essential HTN: Continue isosorbide, losartan, metoprolol and torsemide Status: Acute (7) CAD (coronary artery disease): With a history of stent placement by Dr. Pagan Patient reports being told she requires 2 more stents, will discuss further with cardiology Status: Acute Qualifiers: Associated angina: with other forms of angina Coronary Disease- Associated Artery/Lesion type: [place] artery [place] vs. transplanted heart: [place] heart Qualified Code(s): I25.118 - Atherosclerotic heart disease of [place] coronary artery with other forms of angina pectoris (8) Carotid stenosis: Continue aspirin, statin, Plavix Bilateral ICA stenosis less than 50% Status: Acute (9) Chronic kidney disease: Followed by nephrology in [place], unknown physician per family. Family at bedside reports that last labs showed GFR around 20-30 Discussed with patient the potential for further cardiac intervention. Discussed with patient risk of benefits due to her renal function Status: Acute Qualifiers: Chronic kidney disease stage: stage 4 (severe) Qualified Code(s): N18.4 - Chronic kidney disease, stage 4 (severe) (10) Obesity: Status: Acute Qualifiers: Obesity classification: adult class 3 (BMI >= 40) Additional A&P Information Concern for obstructive sleep apnea: Recommend oxygen by nasal cannula at nighttime, unable to tolerate CPAP in the past VTE prophylaxis: Heparin Diet: Cardiac, carbohydrate consistent CODE STATUS: DNR/DNI, discussed with patient and granddaughter in the ED at time of admission Attestations Medical Necessity Statement*: Patient requires hospitalization due to abnormal stress test status post cardiac cath with chronic total occlusion Coding Level of Care Code Acute [employer] Vessel Pilot for [facility] Fwd Diagnoses TIA (transient ischemic attack) G45.9 Chest pain R07.9 Chest pain type: unspecified Chronic diastolic congestive heart failure I50.32 DM2 (diabetes mellitus, type 2) E11.9 Diabetes mellitus complication detail: with chronic kidney disease Diabetes mellitus complication status: with kidney complications Diabetes mellitus long chain beamer insulin use: with usp use Hyperlipidemia E78.2 Hyperlipidemia type: mixed hyperlipidemia Benign essential HTN I10 CAD (coronary artery disease) I25.118 Associated angina: with other forms of angina Coronary Disease-Associated Artery/Lesion type: [place] artery [place] vs. transplanted heart: [place] heart Carotid stenosis I65.29 Chronic kidney disease N18.4 Chronic kidney disease stage: stage 4 (severe) Obesity E66.9 Obesity classification: adult class 3 (BMI >= 40)
--- NOTE | 2019-11-01 14:21 | PC.NURSE ---
clarified orders for heaparin with Dr severino; instructions to hold this dose and continue all other orders.
[2019-11-01 15:55] LABS: Glucose Point of Care 308 mg/dL (70-110)
[2019-11-01] MEDS: diphenhydrAMINE 25 mg Capsule PO (17:31)
--- NOTE | 2019-11-01 19:00 | PC.NURSE ---
call placed to Dr severino due to patient request for the adam to come out and something to help move her bowels. miralax 17gm time one at bedtime okayed to PONCE adam
[2019-11-01] MEDS: polyethylene glycol 3350 Pkt 17 gm PO (19:06)
--- NOTE | 2019-11-01 19:15 | PC.NURSE ---
Received bedside report from Sabrina Valero RN. Patient is s/p [facility] with right femoral access. Site dressing remain c,d,i. No s/s of bleeding or hematoma formation observed. Patient adam removed per protocol. Patient tolerated well. Assisted patient up to bathroom. C/o not having a bowel movement in 3 or [address] Osman and order was received and administered. Patient expressed thanks. Reassessed groin site and it remains c,d,i with s/s of bleeding observed. Instructed patient on site care and restrictions. Patient verbalized complete understanding. Patient denies other needs or discomforts. No distress observed.
[2019-11-01 20:42] LABS: Glucose Point of Care 217 mg/dL (70-110)
[2019-11-01] MEDS: atorvastatin 40 mg Tablet 80 MG PO (20:44)
[2019-11-02] VITALS (8 sets, daily range): BP systolic 91–113; BP diastolic 51–59; PULSE 69–88; RESP 16–20; TEMP 36.4–36.9; O2SAT 92–98
[2019-11-02] MEDS: heparin 5,000 unit/mL INJ 1 mL 5000 UNIT SUBCUT (01:49)
[2019-11-02 04:25] LABS: Anion Gap 16.5 (5-19); Blood Urea Nitrogen 42 mg/dL (8-23); Calcium 8.6 mg/dL (8.5-10.5); Carbon Dioxide 30 mmol/L (22-29); Chloride 94 mmol/L (98-107); Glucose 190 mg/dL (65-115); Osmolality Calculated 285 mOsm/kg (285-295); Potassium 4.5 mmol/L (3.5-5.1); Sodium 136 mmol/L (136-145)
[2019-11-02 07:35] LABS: Glucose Point of Care 245 mg/dL (70-110)
[2019-11-02] MEDS: clopidogrel 75 mg Tablet PO (08:20)
[2019-11-02] MEDS: losartan 50 mg Tablet 75 MG PO (08:20)
[2019-11-02] MEDS: metoprolol tartrate 50 mg Tablet 25 MG PO (08:20)
[2019-11-02] MEDS: TORSEmide 20 mg Tablet 40 MG PO (08:20)
[2019-11-02] MEDS: cholecalciferol (vitamin D3) 1,000 unit Tablet 1000 UNIT PO (08:21)
[2019-11-02] MEDS: gabapentin 300 mg Capsule PO (08:21)
[2019-11-02] MEDS: isosorbide mononitrate ER 30 mg Tablet PO (08:21)
[2019-11-02] MEDS: cyanocobalamin 1,000 mcg Tablet 1000 MCG PO (08:21)
[2019-11-02] MEDS: aspirin 81 mg EC Tablet PO (08:21)
--- NOTE | 2019-11-02 08:45 | PC.NURSE ---
Called ICU for hand-off report While talking to DANIE Barbour for a hand-off report, [facility] was called overhead by legal secretary receptionist. She was verbally received the order from Dr. Garcia to call POSTAL SERVICE CLERK.
[2019-11-02] MEDS: bisacodyl 10 mg Supp PR (09:31)
[2019-11-02 11:37] LABS: Glucose Point of Care 309 mg/dL (70-110)
--- NOTE | 2019-11-02 11:41 | P.DS_ITS ---
Discharge Providers Date of Admission: 10/31/19 16:34 Date of Discharge: November 02, 2019 Attending Provider at Admission: Cheyanne Osman DO Attending Provider at Discharge: Cheyanne Osman DO Primary Care Provider: Cj Croft Diagnoses at Discharge Discharge Diagnosis (1) TIA (transient ischemic attack): Status: Acute (2) Chest pain: Status: Acute Qualifiers: Chest pain type: unspecified Qualified Code(s): R07.9 - Chest pain, unspecified (3) Chronic diastolic congestive heart failure: Status: Acute (4) DM2 (diabetes mellitus, type 2): Status: Acute Qualifiers: Diabetes mellitus complication detail: with chronic kidney disease Diabetes mellitus complication status: with kidney complications 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 transplanted heart: [place] heart Qualified Code(s): I25.118 - Atherosclerotic heart disease of [place] coronary artery with other forms of angina pectoris (8) Carotid stenosis: Status: Acute (9) Chronic kidney disease: Status: Acute Qualifiers: Chronic kidney disease stage: stage 4 (severe) Qualified Code(s): N18.4 - Chronic kidney disease, stage 4 (severe) (10) Obesity: Status: Acute Qualifiers: Obesity classification: adult class 3 (BMI >= 40) Reason for Visit Reason for Visit: CP Hospital Course Hospital Course: Patient was seen and evaluated in the emergency department and initially had placed on observation due to concern for chest pain and initially concern for TIA. Patient symptoms had resolved at presentation to the emergency department. She was continued on her aspirin, Plavix and statin. She had echocardiogram and carotid ultrasound as well as CT of the head performed. Patient also had stress test performed which showed some areas of ischemia. Cardiology was therefore consulted and patient was taken for cardiac cath on 11/01/2019. She was noted to have a chronic total occlusion of LAD. Patient was brought back to her room and did well in the postoperative setting. On date of discharge she denied any chest pain or shortness of breath stating that she was feeling okay, no paresthesias, no facial droop, no dysarthria, no weakness. She reported that she felt ready to go home. Patient was noted to have some episodes of hypoxia while sleeping which is felt to be related to obstructive sleep apnea, she has been told that she has obstructive sleep apnea in the past but refuses to wear CPAP due to discomfort from the mask. Discussed with patient on date of discharge need for oxygen at nighttime, she verbalized understanding and agreed with plan. Discussed with patient plan for discharge to home with close outpatient follow-up with her primary care provider with recheck labs next week, follow-up with cardiology as well as follow-up with nephrology. Physical Exam Const: COMMON NORMALS: patient oriented x3 and alert GENERAL APPEARANCE: cooperative ORIENTATION/CONSCIOUSNESS: Yes awake, Yes oriented to person, Yes oriented to place and Yes oriented to time HENMT: COMMON NORMALS: normocephalic and atraumatic HEAD & SCALP: normocephalic and atraumatic Eye: COMMON NORMALS: Equal, round and reactive pupils present PUPIL: Yes Equal, round and reactive pupils present Neck/C-Spine: COMMON NORMALS: supple GENERAL: Yes normal visual inspection Resp: COMMON NORMALS: normal respiratory effort and clear to auscultation bilaterally EFFORT & INSPECTION: Yes able to speak in complete sentences AUSCULTATION: clear to auscultation bilaterally, no rhonchi and no wheezes OTHER: No appreciable wheezing or rhonchi, no crackles Cardio: COMMON NORMALS: regular rate, regular rhythm and No murmurs present (Cardio) RATE: regular rate RHYTHM: regular rhythm GI: COMMON NORMALS: Soft to palpation and non-tender INSPECTION: No abdominal distension AUSCULTATION: Yes normoactive bowel sounds PALPATION: Yes Soft to palpation Extremity: COMMON NORMALS: no calf tenderness NARRATIVE EXTREMITY EXAM: Non-pitting edema in the lower extremities bilaterally Neuro: COMMON NORMALS: patient oriented x3, CN's II-XII intact bilaterally, moves all extremities and no focal motor deficits SENSORIUM/ORIENTATION: Yes alert, Yes oriented to person, Yes oriented to place and Yes oriented to time SPEECH: speech normal Psych: COMMON NORMALS: mental status grossly normal and cooperative Skin: COMMON NORMALS: no rashes or lesions noted GENERAL SKIN EXAM: no rashes or lesions noted Urinary Catheter Management^: [place]: Cath Placed During This Visit: yes, but has since been removed by the nurse Reason for Continuing Indwelling Catheter: Required Immobilization for Trauma or Surgery or Anesthesia Urinary Catheter Date of Insertion: 11/01/19 Urinary Catheter Time of Insertion: 09:30 Date Urinary Catheter Removed: 11/01/19 Time Urinary Catheter Discontinued: 19:11 Discharge Data Data Completed and Pending: Completed Studies During Hospitalization Category Date Time Status CT angio chest PE protcl [id number] Stat Cat Scan 10/30/19 09:[address] head wo con* 7 0450 Stat Cat Scan 10/30/19 09:02 Completed INFORMATION TECHNOLOGY ADVISOR request for service Routin e Exams 11/01/19 07:31 Completed Sestamibi Stress Test Request Routi ne Exams 10/30/19 19:01 Completed XR chest 1V naun ble [id number] Stat Exams 10/30/19 06:21 Completed NM radha perf SPECT r/s* [id number] Routin e Nuc Med 10/31/19 19:01 Completed CV carotid duplex BI* [id number] Routine Ultrasound 10/31/19 07:00 Completed CV echo complete* [id number] Routine Ultrasound 10/31/19 07:00 Completed Labs from last 24 hours 11/02/19 11/02/19 11/02/19 11:29 07:32 03:26 Sodium 136 Potassium 4.5 Chloride 94 L Carbon Dioxide 30 H Anion Gap 16.5 BUN 42 H Creatinine 2.0 H Glucose 190 H POC Glucose 309 245 Calculated Osmolal ity 285 Calcium 8.6 11/01/19 11/01/19 20:38 15:28 Sodium Potassium Chloride Carbon Dioxide Anion Gap BUN Creatinine Glucose POC Glucose 217 308 Calculated Osmolal ity Calcium Vitals: Last Vital Signs Temp 97.5 F L 11/02/19 03:56 Pulse 81 11/02/19 11:18 Resp 16 11/02/19 03:56 BP 100/59 11/02/19 03:56 Pulse Ox 92 11/02/19 11:18 Discharge Plan Discharge Patient Disposition: Home, Self-Care Condition: Stable Prescriptions: Continued clopidogrel 75 mg tablet 75 mg PO DAILY RF: 0 atorvastatin 80 mg tablet 80 mg PO BEDTIME RF: 0 losartan 50 mg tablet 75 mg PO DAILY RF: 0 aspirin [Adult Aspirin Regimen] 81 mg tablet,delayed release (DR/EC) 81 mg PO DAILY RF: 0 torsemide 20 mg tablet 40 mg PO BID RF: 0 isosorbide mononitrate 30 mg Tablet Extended Release 24 Hr 30 mg PO DAILY RF: 0 gabapentin 300 mg Capsule 300 mg PO BID RF: 0 diphenhydramine HCl [Benadryl] 25 mg Capsule 25 mg PO BID PRN (Reason: Itching) RF: 0 Novolin 70/30 U-100 Insulin 100 unit/mL (70-30) Suspension See Rx Instructions .ROUTE .COMPLEX RF: 0 Vitamin B-12 1,000 mcg Tablet 1,000 mcg PO DAILY RF: 0 metoprolol tartrate 50 mg Tablet 25 mg PO BID RF: 0 Vitamin D3 25 mcg (1,000 unit) Tablet 25 mcg PO DAILY RF: 0 chromium picolinate 1,000 mcg Tablet 1,000 mcg PO EVERY OTHER DAY RF: 0 magnesium oxide 400 mg magnesium Tablet 400 mg PO EVERY OTHER DAY RF: 0 Discontinued potassium chloride 20 mEq Tablet Extended Release See Rx Instructions .ROUTE .COMPLEX RF: 0 Discharge Orders: Discharge Order (Routine); Ordered 11/02/19 Ordered By: Cheyanne Osman Referrals: Rohan Pagan MD [Physician] - 7-10 days (Follow-up with [facility] [place] in 1 week with follow-up with Dr. Pagan as previously scheduled) Cj Croft [Primary Care Provider] - 1-3 days Discharge Diet: Cardiac and Diabetic Discharge Activity: Resume usual activity, Increase activity as tolerated, Limit activity as instructed and Oxygen as instructed Activity Restrictions/Additional Instructions: Continue on aspirin, Plavix, atorvastatin No changes in medications at this time other than continue to hold potassium supplementation. Follow-up with cardiology office in 1 week with follow-up with Dr. Pagan as previously scheduled Follow-up with primary care provider at the [facility] early next week and recommend repeat blood work, chemistry panel, at that time Follow-up with your sharepoint developer, kidney doctor, as previously scheduled Continue on a cardiac and diabetic diet Increase activity as instructed, continue with precautions following cardiac catheterization Continue with oxygen by nasal cannula on exertion but also continue with oxygen by nasal cannula at night due to concern for obstructive sleep apnea causing nighttime hypoxia Call your physician or present to the emergency department for any acute illness or concern Discharge Attestations Time Spent in Discharge Care*: greater than 30 min Quality Metrics Clinical Quality Measures During this hospital stay, did patient experience: None Coding Level of Care Code 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 Diagnoses TIA (transient ischemic attack) G45.9 Chest pain R07.9 Chest pain type: unspecified Chronic diastolic congestive heart failure I50.32 DM2 (diabetes mellitus, type 2) E11.9 Diabetes mellitus complication detail: with chronic kidney disease Diabetes mellitus complication status: with kidney complications Diabetes mellitus care 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 transplanted heart: [place] heart Carotid stenosis I65.29 Chronic kidney disease N18.4 Chronic kidney disease stage: stage 4 (severe) Obesity E66.9 Obesity classification: adult class 3 (BMI >= 40)
--- NOTE | 2019-11-02 12:20 | PM.PN ---
Subjective Subjective: Interval history: Jing has had an uneventful night. There is a small amount of bruising about the entry site but no hematoma. Her angiogram yesterday revealed an occluded LAD at the stent. A brief attempt was made to pass a wire through which was unsuccessful. It is obvious this is a chronic total occlusion. Medications: Reviewed: Yes Vitals/I&O/Wt Last Vital Signs Temp 98.4 F 11/02/19 12:01 Pulse 69 11/02/19 12:01 Resp 20 H 11/02/19 12:01 BP 113/54 11/02/19 12:01 Pulse Ox 94 11/02/19 12:01 11/01/19 11/02/19 11/02/19 22:59 06:59 14:59 Intake Total 240 / 921.667 933 / 1854.667 Output Total 1400 / 2400 Balance -1160 / -1478.333 933 / -545.333 Weight last 48 hrs Weight 270 lb 14.4 oz Weight 273 lb 6.4 oz Physical Exam Narrative: EXAM NARRATIVE: GENERAL: In general she is comfortable at rest HEENT: Exam within normal limits. NECK: Supple without jugular vein distention. The carotid upstroke is normal without bruits. BACK: Exam normal. LUNGS: Clear. HEART: Regular rate and rhythm. ABDOMEN: Benign without organomegaly or tenderness. EXTREMITIES: No edema. The right groin entry site is without bleeding or hematoma. There is a small amount of bruising. NEUROLOGIC: Exam normal. SKIN: Unremarkable. Urinary Catheter Management^: [place]: Cath Placed During This Visit: yes, but has since been removed by the nurse Reason for Continuing Indwelling Catheter: Required Immobilization for Trauma or Surgery or Anesthesia Urinary Catheter Date of Insertion: 11/01/19 Urinary Catheter Time of Insertion: 09:30 Date Urinary Catheter Removed: 11/01/19 Time Urinary Catheter Discontinued: 19:11 Data : 11/01/19 03:10 11/02/19 03:26 A&P Assessment and plan (1) Abnormal nuclear stress test: Status: Acute (2) Obesity: Status: Acute Qualifiers: Obesity classification: adult class 3 (BMI >= 40) (3) Chest pain: Status: Acute Qualifiers: Chest pain type: unspecified Qualified Code(s): R07.9 - Chest pain, unspecified (4) TIA (transient ischemic attack): Status: Acute (5) Hyperlipidemia: Status: Acute Qualifiers: Hyperlipidemia type: mixed hyperlipidemia Qualified Code(s): E78.2 - Mixed hyperlipidemia (6) DM2 (diabetes mellitus, type 2): Status: Acute Qualifiers: Diabetes mellitus complication detail: with chronic kidney disease Diabetes mellitus complication status: with kidney complications Diabetes mellitus assisted insulin use: with joint terminal attack controller use (7) Chronic kidney disease: Status: Acute Qualifiers: Chronic kidney disease stage: stage 4 (severe) Qualified Code(s): N18.4 - Chronic kidney disease, stage 4 (severe) (8) Chronic diastolic congestive heart failure: Status: Acute (9) Carotid stenosis: Status: Acute (10) CAD (coronary artery disease): Status: Acute Qualifiers: Associated angina: with other forms of angina Coronary Disease-Associated Artery/Lesion type: [place] artery [place] vs. transplanted heart: [place] heart Qualified Code(s): I25.118 - Atherosclerotic heart disease of [place] coronary artery with other forms of angina pectoris (11) Benign essential HTN: Status: Acute Additional A&P Information She may be discharged today. She can either see the nurse practitioner in our office in a week or the [place] [facility]. Just as long as she obtains a chemistry panel to assess her creatinine. She has an appointment with me in the clinic on the which she will keep. 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 Type Established History Detailed Exam Detailed Medical Decision Making Moderate Complexity Diagnoses Abnormal nuclear stress test R94.39 Obesity E66.9 Obesity classification: adult class 3 (BMI >= 40) Chest pain R07.9 Chest pain type: unspecified TIA (transient ischemic attack) G45.9 Hyperlipidemia E78.2 Hyperlipidemia type: mixed hyperlipidemia DM2 (diabetes mellitus, type 2) E11.9 Diabetes mellitus complication detail: with chronic kidney disease Diabetes mellitus complication status: with kidney complications Diabetes mellitus assisted insulin use: with joint terminal attack controller use Chronic kidney disease N18.4 Chronic kidney disease stage: stage 4 (severe) Chronic diastolic congestive heart failure I50.32 Carotid stenosis I65.29 CAD (coronary artery disease) I25.118 Associated angina: with other forms of angina Coronary Disease-Associated Artery/Lesion type: [place] artery [place] vs. transplanted heart: [place] heart Benign essential HTN I10
--- NOTE | 2019-11-02 13:30 | PC.NURSE ---
Discharge yo home Instructed pt on no lifting of more than 10 lbs next 2 days. Other home care instructions discuss to pt such as wound care. Informed pt of the stopped medication. Pt teaches back that she has not been taking it since 2 mos now. Discharge papers provided to pt. ushered via wheelchair.
== END 2019-11-02 13:57 | disposition home or self-care (01) | DRG 286 ==
LOC: ER 08:43 → CSU 12:40
PROVIDERS: Family Medicine; Internal Medicine Cardiovascular Disease; Admitting Provider Family Medicine; Family Provider Internal Medicine; PCP Internal Medicine; Visit Provider Family Medicine
PROC: 4A023N7 Measurement of Cardiac Sampling and Pressure, Left Heart, Percutaneous Approach (ICD-10-PCS; principal; 2019-11-01 16:30)
DX: I13.0 Hypertensive heart and chronic kidney disease with heart failure and stage 1 through stage 4 chronic kidney disease, or unspecified chronic kidney disease (principal); I50.41 Acute combined systolic (congestive) and diastolic (congestive) heart failure; G45.9 Transient cerebral ischemic attack, unspecified; N18.4 Chronic kidney disease, stage 4 (severe); Z68.42 Body mass index [BMI] 45.0-49.9, adult; E11.22 Type 2 diabetes mellitus with diabetic chronic kidney disease; Z79.4 Long term (current) use of insulin; E66.9 Obesity, unspecified; Z79.02 Long term (current) use of antithrombotics/antiplatelets; Z79.82 Long term (current) use of aspirin; I65.29 Occlusion and stenosis of unspecified carotid artery; E78.2 Mixed hyperlipidemia; I25.118 Atherosclerotic heart disease of native coronary artery with other forms of angina pectoris
CPT/HCPCS: 12345; 36415; 36416; 51702; 70450; 71045; 71275; 78452; 80048; 80053; 82962; 83880; 84439; 84443; 84484; 85025; 85378; 93005; 93017; 93306; 93454; 93880; 96372; 96375; 97161; 97165; 97535; 99284; A9500; C1769; C1887; G0378; J1644; J1815; J2250; J2270; J2405; J2765; J2785; J3010; J7030; Q9967

== ENCOUNTER 2020-01-22 17:52 | Emergency (ER) | payer OTHER, SELFPAY ==
[2020-01-22 18:25] VITALS: BP 155/81; PULSE 83; RESP 14; TEMP 36.5; O2SAT 96; BMI 46.5
--- NOTE | 2020-01-22 18:40 | ED_ITS ---
HPI - Dizziness General: Chief Complaint: Dizziness Stated Complaint: losing balance/dizziness/uneasy stomach Time Seen by Provider: 01/22/20 18:31 Source: patient Mode of arrival: ambulatory Limitations: no limitations History of Present Illness: HPI Narrative: 79-year-old female that has had sinus pain along with nasal drainage along with vertigo over the last 2 to 3 days. She states she makes it movements she feels quite dizzy. She has had this in the past and states she took Benadryl at home and had a lot of improvement. She denies any headache. Denies any fever or vomiting. Patient denies any ear pain. Associated symptoms: Denies chest pain, chills, nausea or vomiting Review of Systems Const: Denies: fever(s), chills, body aches or change in appetite Eyes: Denies: blurry vision or eye discomfort ENMT: Reports: nasal discharge and sinus pain Card: Denies: chest pain Resp: Denies: dyspnea GI: Denies: abdominal pain, nausea, vomiting or diarrhea : Denies: dysuria Musc: Denies: neck pain or back pain Skin/Breast: Denies: rash Neuro: Reports: vertigo Psych: Denies: depression Nelson/Lymph: Denies: easy bruising All/Imm: Denies: urticaria PFSH ED PFSH: Medical History (Updated 01/22/20 @ 18:40 by Naren Hernandez MD) Allergy to Betadine Benign essential HTN CAD (coronary artery disease) Carotid stenosis Chronic diastolic congestive heart failure Chronic kidney disease DM2 (diabetes mellitus, type 2) Goiter Hyperlipidemia Hypertrophy of inferior nasal turbinate Nasal septal deformity Obesity Postherpetic polyneuropathy Postnasal drip Surgical History H/O partial thyroidectomy H/O: hysterectomy History of back surgery Hx of cholecystectomy Status post cardiac catheterization Family History Mother CAD (coronary artery disease) Other Diabetes Myocardial infarction Social History Smoking and tobacco status: never smoked Alcohol intake: former Physical Exam Const: COMMON NORMALS: no acute distress, patient oriented x3 and healthy appearing HENMT: COMMON NORMALS: normocephalic and atraumatic HEAD & SCALP: normocephalic and atraumatic Eye: COMMON NORMALS: Equal, round and reactive pupils present and EOMs intact bilaterally PUPIL: Yes Equal, round and reactive pupils present Neck/C-Spine: COMMON NORMALS: full ROM and supple Chest: COMMONS NORMALS: normal inspection of the chest and normal palpation of entire chest wall Resp: COMMON NORMALS: normal respiratory effort, No retractions, No use of accessory muscles and clear to auscultation bilaterally AUSCULTATION: clear to auscultation bilaterally Cardio: COMMON NORMALS: regular rate, regular rhythm and No murmurs present (Cardio) RATE: regular rate RHYTHM: regular rhythm GI: COMMON NORMALS: Normal to inspection, nondistended, normoactive bowel sounds present, Soft to palpation, non-tender and no masses PALPATION: Yes Soft to palpation Extremity: COMMON NORMALS: normal to inspection and full ROM Neuro: COMMON NORMALS: patient oriented x3, moves all extremities and no focal motor deficits Psych: COMMON NORMALS: mental status grossly normal, Normal thought process present and cooperative THOUGHT PROCESS: Normal thought process present Skin: COMMON NORMALS: no rashes or lesions noted and no wounds GENERAL SKIN EXAM: no rashes or lesions noted Course Vital Signs: Vital signs: Vital Signs Temperature 97.7 F 01/22/20 18:25 Pulse Rate 83 01/22/20 18:25 Respiratory Rate 14 01/22/20 18:25 Blood Pressure 155/81 01/22/20 18:25 Pulse Oximetry 96 01/22/20 18:25 MDM - Dizziness MDM Narrative: Medical decision making narrative: Patient presents here with vertigo along with sinus pain with likely sinusitis. I strongly recommended a CT head due to her age but she refuses and states that her symptoms resolved with Benadryl and she believes it is from her sinus infection. I explained her it still could be a stroke or even a hemorrhage I recommended CT but she refused. We will place her on Keflex along with meclizine. She is to return if worsening and she understands and agrees to the plan. Discharge Plan Discharge Patient Disposition: Home Clinical Impression: Vertigo Sinusitis Qualifiers: Sinusitis location: frontal Chronicity: acute Recurrence: non-recurrent Qualified Code(s): J01.10 - Acute frontal sinusitis, unspecified Condition: Stable Prescriptions: New meclizine 25 mg tablet 25 mg PO BID PRN (Reason: dizziness) Qty: 14 RF: 0 Keflex 500 mg capsule 500 mg PO Q6H 7 Days Qty: 28 RF: 0 No Action clopidogrel 75 mg tablet 75 mg PO DAILY RF: 0 atorvastatin 80 mg tablet 80 mg PO BEDTIME RF: 0 losartan 50 mg tablet 75 mg PO DAILY RF: 0 aspirin [Adult Aspirin Regimen] 81 mg tablet,delayed release (DR/EC) 81 mg PO DAILY RF: 0 torsemide 20 mg tablet 40 mg PO BID RF: 0 isosorbide mononitrate 30 mg tablet extended release 24 hr 30 mg PO DAILY Qty: 90 RF: 3 gabapentin 300 mg Capsule 300 mg PO BID RF: 0 diphenhydramine HCl [Benadryl] 25 mg Capsule 25 mg PO BID PRN (Reason: Itching) RF: 0 Novolin 70/30 U-100 Insulin 100 unit/mL (70-30) Suspension See Rx Instructions .ROUTE .COMPLEX RF: 0 Vitamin B-12 1,000 mcg Tablet 1,000 mcg PO DAILY RF: 0 metoprolol tartrate 50 mg Tablet 25 mg PO BID RF: 0 Vitamin D3 25 mcg (1,000 unit) Tablet 25 mcg PO DAILY RF: 0 chromium picolinate 1,000 mcg Tablet 1,000 mcg PO EVERY OTHER DAY RF: 0 magnesium oxide 400 mg magnesium Tablet 400 mg PO EVERY OTHER DAY RF: 0 Discharge Orders: Discharge Order (Routine); Ordered 01/22/20 Ordered By: Naren Hernandez Referrals: Cj Croft [Primary Care Provider] - 1-3 days Discharge Diet: Advance as tolerated Discharge Activity: Resume usual activity Patient Instructions: Sinusitis (ED), Vertigo (ED) Coding Level of Care Code ED Enrichment Teacher for Luly Kenney
[2020-01-22 18:56] VITALS: BP 177/78; PULSE 91; RESP 20; O2SAT 96
== END 2020-01-22 19:08 | disposition home or self-care (01) ==
PROVIDERS: Emergency Provider Emergency Medicine; PCP Internal Medicine
DX: J01.10 Acute frontal sinusitis, unspecified (principal); R42 Dizziness and giddiness; Z79.02 Long term (current) use of antithrombotics/antiplatelets; Z79.82 Long term (current) use of aspirin; Z79.4 Long term (current) use of insulin; I25.10 Atherosclerotic heart disease of native coronary artery without angina pectoris; I11.0 Hypertensive heart disease with heart failure; I50.32 Chronic diastolic (congestive) heart failure; E11.9 Type 2 diabetes mellitus without complications; E78.5 Hyperlipidemia, unspecified
CPT/HCPCS: 12345; 99281; 99282

== ENCOUNTER 2020-03-05 20:00 | Outpatient (CLI) | payer OTHER, SELFPAY | END 2020-03-05 20:01 | disposition home or self-care (01) | LOC: SLEEP 03-06 09:55 | PROVIDERS: PCP Internal Medicine; Visit Provider Nurse Practitioner | DX: R42 Dizziness and giddiness (principal); R51.9 Headache, unspecified; R53.83 Other fatigue; G47.33 Obstructive sleep apnea (adult) (pediatric) | CPT/HCPCS: 95810 ==

== ENCOUNTER 2020-07-10 11:37 | Outpatient (CLI) | payer OTHER, SELFPAY ==
[2020-07-10 12:36] LABS: Free T4 Free Thyroxine 0.94 ng/dL (0.82-1.77); Thyroid Stimulating Hormone 4.02 uIU/mL (0.27-4.20)
== END 2020-07-10 11:38 | disposition home or self-care (01) ==
PROVIDERS: PCP Internal Medicine; Visit Provider Internal Medicine
DX: E03.9 Hypothyroidism, unspecified (principal); E04.9 Nontoxic goiter, unspecified; Z90.09 Acquired absence of other part of head and neck
CPT/HCPCS: 36415; 82565; 84439; 84443; 84520; 99204